=== PATIENT | female | born 1950 | race Caucasian/White ===

== ENCOUNTER 2022-03-30 11:18 | Emergency (ER) | payer MEDICARE, SELFPAY ==
--- NOTE | ~2022-03-30 | XR_ITS ---
EXAMINATION: XR chest 2V 03/30/2022 12:20 INDICATION: Cough with shortness of breath PROCEDURE: 2 view chest COMPARISON: Comparison to multiple prior studies sequentially, with oldest reviewed study dated 09/2010. FINDINGS: The lungs are clear. The cardiomediastinal silhouette is within normal limits. There are no pleural effusions. There is no pneumothorax suspected. Status post median sternotomy for CABG. IMPRESSION: 1: NO ACUTE CARDIOPULMONARY DISEASE. Reviewed, dictated and finalized at location A.
[2022-03-30 11:31] VITALS: BP 168/58; PULSE 67; RESP 18; TEMP 36.6; O2SAT 96
--- NOTE | 2022-03-30 11:52 | ECG_ITS ---
Measurements Intervals [place] Rate: 60 P: 60 [place]: 216 QRS: -19 QRSD: 141 T: 6 QT: 447 QTc: 449 Interpretive Statements SINUS RHYTHM WITH FIRST DEGREE AV BLOCK LEFT BUNDLE BRANCH BLOCK [120+ ms QRS DURATION, 80+ ms Q/S IN V1/V2, 85+ ms R IN I/aVL/V5/V6] NO PREVIOUS ECG AVAILABLE FOR COMPARISON Electronically Signed On 03-31-2022 13:02:28 CDT by Orville Farmer M.D.
--- NOTE | 2022-03-30 11:52 | ED.SOB ---
HPI - SOB/Dyspnea General Chief Complaint: Shortness of Breath/Dyspnea Stated Complaint: shortness of breath Source: patient Mode of arrival: ambulatory Limitations: no limitations History of Present Illness HPI Narrative: Patient 71-year-old white female with history of congestive heart failure complains of shortness of breath with exertion for the past 4-5 days worse at night and with exertion he has had some episodes where she gets short of breath at nighttime wakes up has to get up being catch her breath. She has had a nonproductive cough for the last 3 days denies any chest pain fever. She thinks she might have had fevers she has had some chills she has been fatigued she says it feels like she might have for congestive heart failure symptoms back. She takes hydrochlorothiazide for this denies any dizziness heart racing denies any chest pain leg pain back or abdominal pain her headache she saw her curriculum facilitator in December and her primary care doctor in November she had COVID in December past medical history heart disease coronary artery disease with a bypass. Related Data Home Medications Medication Instructions Recorded Confirmed carvedilol 12.5 mg tablet 12.5 mg PO BID 05/17/19 03/30/22 insulin NPH isoph U-100 human 100 40 unit subcut HS 05/17/19 03/30/22 unit/mL subcutaneous suspension (Humulin N NPH U-100 Insulin (isophane susp)) losartan 100 mg tablet 100 mg PO HS 05/17/19 03/30/22 metformin 1,000 mg tablet 1,000 mg PO BID 05/17/19 03/30/22 pravastatin 10 mg tablet 10 mg PO HS 05/17/19 03/30/22 aspirin 81 mg tablet,delayed 81 mg PO DAILY 01/21/21 03/30/22 release (Adult Aspirin Regimen) Allergies Allergy/AdvReac Type Severity Reaction Status Date / Time Penicillins Allergy Unknown Hives Verified 03/30/22 11:35 Review of Systems Review of Systems: All systems reviewed & are unremarkable except as noted in HPI and below Constitutional: Constitutional: Reports as per HPI, Reports no additional constitutional complaints, Reports chills, Reports fatigue, Denies fever(s) and Denies weakness Eyes: Eyes: Reports no additional eye complaints ENT: Reports system reviewed and no additional complaints, except as documented Comments: Denies any sore throat runny nose postnasal drip. Cardiovascular: Cardiovascular: Reports as per HPI and Reports no additional cardiovascular complaints Respiratory: Respiratory: Reports as per HPI and Reports no additional respiratory complaints Gastrointestinal: Gastrointestinal: Reports as per HPI and Reports no additional gastrointestinal complaints Genitourinary: Comments: She had some burning with urination 4 days ago and took some azo, since then she has not had any burning. She says she avoids all the time. Denies any bleeding or bruising. Musculoskeletal: Musculoskeletal: Reports no additional musculoskeletal complaints and Reports as per HPI Comments: Denies any pain Integumentary/Breasts: Skin/Breast: Reports system reviewed and no additional complaints, except as docu Comments: denies any lumps or bumps Neurologic: Reports system reviewed and no additional complaints, except as documented, Reports as per HPI, Denies focal weakness, Denies numbness and Denies weakness Psychiatric: Psychiatric: Reports no additional psychiatric complaints Endocrine: Endocrine: Reports no additional endocrine complaints Hematologic/Lymphatic: Hematologic/Lymphatic: Reports no additional hematologic/lymphatic complaints [facility] Past Medical History Medical History Arthritis Hyperlipidemia Hypertension KIP (obstructive sleep apnea) Family History Family History Father Family history of diabetes mellitus in first degree relative Family history of heart disease in male family member before age 55 Mother Family history of diabetes mellitus in first degree relative
[2022-03-30 11:55] VITALS: PULSE 60; RESP 18; O2SAT 92
[2022-03-30] MEDS: IPRATROPIUM 0.5 MG/ALBUTEROL SULFATE 2.5 MG AMPUL.NEB 3 ML INHALATION (11:55)
[2022-03-30 12:04] VITALS: PULSE 67; RESP 18
[2022-03-30 12:12] LABS: Basophils Absolute Auto 0.04 K/mm3 (0.00-0.10); Basophils Percent Auto 0.4 % (0.0-1.0); Hemoglobin 11.3 g/dL (11.7-13.8); Immature Granulocyte Absolute 0.03 K/mm3 (0.00-0.00); Immature Granulocyte Percent A 0.3 % (0.0-0.0); Lymphocytes Absolute Auto 2.61 K/mm3 (1.10-4.50); Lymphocytes Percent Auto 28.3 % (18.0-42.0); Mean Corpuscular HGB Conc 32.3 g/dL (32.0-36.0); Mean Corpuscular Hemoglobin 28.5 pg (27.0-31.0); Mean Corpuscular Volume 88.2 fL (78.0-102.0); Mean Platelet Volume 11.4 fl (9.2-11.8); Monocytes Absolute Auto 0.89 K/mm3 (0.10-0.90); Monocytes Percent Auto 9.7 % (2.0-11.0); Neutrophils Absolute Auto 5.6 K/mm3 (1.7-7.2); Neutrophils Percent Auto 61.3 % (50.0-70.0); Platelet Count Result 209 K/mm3 (150-420); Red Blood Count 3.97 M/mm3 (4.20-5.40); Red Cell Distribution Width 14.4 % (11.6-14.4); White Blood Count 9.2 K/mm3 (4.8-10.8)
[2022-03-30 12:14] LABS: Bilirubin Urine 1+ (Negative); Blood Urine 1+ (Negative); Glucose Urine UA Negative (Negative); Ketones Urine Trace (Negative); Leukocyte Esterase Ur 3+ (Negative); Nitrate Urine Positive (Negative); Protein Urine 2+ (Negative); Specific Grav Ur 1.025 (1.010-1.020); Urobilinogen Urine 0.2 mg/dL (0.2-1.0)
[2022-03-30 12:20] LABS: Add Urine Microscopic? YES; Appearance Urine Cloudy (Clear); Color Urine Dark Yellow (Yellow)
[2022-03-30 12:21] LABS: Bacteria Urine 4+ /hpf; Squamous Epithelial Cell Urine Few /hpf (Few); WBC Urine >75 /hpf (0-3)
[2022-03-30 12:24] LABS: D Dimer 0.42 mg/L (0.19-0.50); INR 1.1; Partial Thromboplastin Time 34.1 SEC (23.90-30.70); Prothrombin Time 11.6 Seconds (9.50-12.10)
[2022-03-30 12:32] LABS: Alanine Aminotransferase 26 U/L (14-59); Albumin Level 3.3 g/dL (3.4-5.0); Alkaline Phosphatase 80 U/L (46-116); Anion Gap 7 mmol/L (8-16); Aspartate Amino Transferase 20 U/L (15-37); Bilirubin,Total 1.5 mg/dL (0.00-1.00); Blood Urea Nitrogen 20 mg/dL (7-18); Calcium 8.8 mg/dL (8.5-10.1); Carbon Dioxide 28 mmol/L (21-32); Chloride 99 mmol/L (98-108); Estimated Glomerular Filt Rate 49; Glucose 222 mg/dL (70-99); Magnesium 1.7 mg/dL (1.8-2.4); NT Pro B Type Natriuretic Pept 1079 pg/mL (0-125); Osmolality Calculated 287 mOsm/kg (285-295); Sodium 134 mmol/L (136-145)
[2022-03-30 12:34] LABS: Troponin I 278.3 ng/L (0.00-60.4)
--- NOTE | 2022-03-30 13:10 | PC.NURSE ---
attempt to call warehouse forklift operator at [place], no answer will try again.
[2022-03-30] MEDS: CIPROFLOXACIN 250 MG TABLET PO (13:25)
[2022-03-30] MEDS: ENOXAPARIN 100 MG/ML SYRINGE SUB-Q (13:26)
[2022-03-30] MEDS: ASPIRIN 81 MG CHEWABLE TABLET 324 MG PO (13:26)
--- NOTE | 2022-03-30 13:30 | PC.NURSE ---
spoke with kumar sheabath house attendant at [facility], states the will have an IMU room avalible but it will be awhile he has 6 admissions from the ER that he has to place first.
--- NOTE | 2022-03-30 14:29 | PC.NURSE ---
received a call from Chris sheagreenhouse superintendent at [facility], states he is still working on admissions at [facility] but still has room available for patient. will call back when its her turn.
[2022-03-30 14:57] LABS: Troponin I 251.3 ng/L (0.00-60.4)
--- NOTE | 2022-03-30 15:30 | PC.NURSE ---
Chris sheaboiler house operator from [facility] called, he has hospitalist paged at this time.
[2022-03-30 16:15] LABS: SARS-CoV-2 RNA PCR Negative (Negative)
--- NOTE | 2022-03-30 17:02 | PC.NURSE ---
kumar sheadata warehouse analyst from [place] called back. waiting on patient's potential room partner to have a negative flu swab prior to sending patient to [place] and getting room assignment.
[2022-03-30 18:37] VITALS: BP 174/65; PULSE 59; RESP 16; TEMP 36.8; O2SAT 94
--- NOTE | 2022-03-31 16:54 | PC.NURSE ---
PRELIMINARY URINE CULTURE GREATER THAN 100,000 CFU OF E COLI ISOLATED. NO SENSITIVITY REPORT AT THIS TIME. RESULTS WERE CALLED TO JANA JOHNSON AT [facility] AT 1510.
== END 2022-03-30 18:39 | disposition short-term general hospital (02) ==
PROVIDERS: Emergency Provider Emergency Medicine; PCP Internal Medicine
DX: I21.4 Non-ST elevation (NSTEMI) myocardial infarction (principal); I50.9 Heart failure, unspecified; Z20.822 Contact with and (suspected) exposure to COVID-19; E78.5 Hyperlipidemia, unspecified; I10 Essential (primary) hypertension; Z79.899 Other long term (current) drug therapy
CPT/HCPCS: 36415; 71046; 80053; 81001; 83735; 83880; 84484; 85025; 85380; 85610; 85730; 87077; 87086; 87088; 87186; 93005; 94640; 96372; 99285; A9270; J1650; U0003; U0005

== ENCOUNTER 2022-03-30 19:12 | Inpatient (IN) | payer MEDICARE, SELFPAY ==
--- NOTE | ~2022-03-30 | US_ITS ---
EXAMINATION: US venous doppler [facility] DATE: 03/31/2022 11:42 INDICATION: Lower limb swelling TECHNIQUE: Grayscale ultrasound images without and with compression and Doppler ultrasound images of the bilateral lower extremity veins were obtained. COMPARISON: None. FINDINGS: The visualized portions of right common femoral vein, profunda (deep) femoral vein, femoral vein, pop liteal vein, posterior tibial veins, peroneal veins and greater saphenous vein outflow are patent. The visualized portions of left common femoral vein, profunda femoral vein, femoral vein, popliteal v ein, posterior tibial veins, peroneal veins and greater saphenous vein outflow are patent. IMPRESSION: 1. No deep venous thrombosis in either lower limb. Reviewed, dictated and finalized at location B.
[2022-03-30 19:00] VITALS: BMI 37.2
--- NOTE | 2022-03-30 19:30 | PM.IMHP ---
H&P: HPI History of Present Illness Date/Time: 03/30/22 19:30 Chief Complaint: Elevated troponin. Narrative: This is a 71-year-old female with coronary artery disease, insulin-dependent diabetes, hypertension, hyperlipidemia, and sleep apnea who is being admitted to the IMU from the emergency department at the [facility] for further evaluation after she was found to have an elevated troponin. She swims 3 times a week and last Thursday she was driving to the facility and by the time she got there he was exhausted to the point where she could hardly even get out of the car. She returned home at which time she started to have chills and she felt as though she had a fever though never checked her temperature. She had a dry cough for a couple of days which has continued and she came in today for evaluation of progressive shortness of breath with exertion. She also reports having dysuria for a couple of days late last week but that has since resolved. Her appetite has not been great; she denies nausea and vomiting. Workup at the outside facility was pretty unremarkable. A troponin was drawn and came back slightly elevated and because of this transfer was initiated here for Cardiology consultation. At the time my evaluation her main complaint is that of the continued, barking cough. She does not and has not had any chest pain, pleuritic pain, or palpitations. SARS-CoV-2 by PCR was negative. Review of Systems Review of Systems: Twelve systems were reviewed. Reports subjective fever. No headache or neck ache. No sore throat or sinus congestion. She denies sick contacts. She had COVID a month and half ago. No back or abdominal pain. She had some dysuria earlier this week but that has resolved. No syncope or near syncope. Except as documented, all other systems were reviewed and are negative. [facility] Past Medical History Medical History (Updated 03/30/22 @ 22:09 by Martina Guzman PA-C) Arthritis Coronary artery disease Heart failure with preserved ejection fraction Hyperlipidemia Hypertension Insulin dependent type 2 diabetes mellitus Obstructive sleep apnea Surgical History Surgical History (Updated 03/30/22 @ 19:17 by Martina Guzman PA-C) History of coronary artery bypass graft (10/2010) Family History Family History Father Family history of diabetes mellitus in first degree relative Family history of heart disease in male family member before age 55 Mother Family history of diabetes mellitus in first degree relative Family history of heart disease in male family member before age 55 Social History Social History Social History: Surrogate medical decision maker: Sohail Becerra, spouse. Code status: Full code. Smoking status: Never smoker Alcohol intake: never Substance use: never Has the Lack of Transportation Kept You From Medical Appointments or From Getting Medications?: No Within the Past 12 Months, Were You Worried Whether Your Food Would Run Out Before You Got Money to Buy More?: Never True What is Your Housing Situation Today?: I Have Housing Are You Worried That in the Next 2 Months, You May Not Have Your Own Housing to Live In?: No Do You Have Trouble Paying Your Heating Or Electricity Bill?: No Do You Have Trouble Paying For Medicines?: No Are You Currently Unemployed and Looking for Work?: No Highest Level of Education Completed: High School Diploma/GED Do You Have Trouble With Childcare or the Care of a Family Member?: No Spiritual care concerns: No Meds Home Medications and Allergies Home Medications Medication Instructions Recorded Confirmed Type carvedilol 12.5 mg tablet 12.5 mg PO BID 05/17/19 03/30/22 History insulin NPH isoph U-100 human 100 40 unit subcut HS 05/17/19 03/30/22 History unit/mL subcutaneous suspension (Humulin N
[2022-03-30 20:00] VITALS: BP 148/64; PULSE 64; PULSE 74; RESP 20; TEMP 37.5; O2SAT 99
--- NOTE | 2022-03-30 20:21 | ADMGEN ---
This patient, Melissa Molina, was admitted to IMU Room 206-01 at 1904. Patient/family oriented to hospital policies and general routines including ID bracelet, bed and alarms, visiting hours, pain management, procedures, bathroom and other care routines, personal items, smoking policy, room service/diet, and visiting hours. Information on how to activate the Rapid Response Team has been discussed. Patient/Family are encouraged to report perceived risks to care and to ask questions if they do not understand what they are told or what they should do.
[2022-03-30 21:17] LABS: Anion Gap 11 mmol/L (8-16); Blood Urea Nitrogen 19 mg/dL (7-17); Calcium 8.9 mg/dL (8.4-10.2); Carbon Dioxide 25 mmol/L (22-30); Chloride 97 mmol/L (98-107); Estimated Glomerular Filt Rate > 60; Glucose 206 mg/dL (65-110); Potassium 3.7 mmol/L (3.4-5.0); Sodium 133 mmol/L (137-145)
[2022-03-30 21:18] LABS: Magnesium 1.7 mg/dL (1.6-2.3)
[2022-03-30 21:22] LABS: Glucose Point of Care 217 mg/dl (65-105)
[2022-03-30 21:31] LABS: Troponin I 0.139 ng/mL (0.000-0.034)
[2022-03-30 22:00] VITALS: PULSE 69
[2022-03-30 22:05] VITALS: PULSE 89; RESP 18
[2022-03-30] MEDS: ALBUTEROL SULFATE (*SP) AEROSOL 1 PUFF 2 PUFF INHALATION (22:05)
[2022-03-30] MEDS: FUROSEMIDE INJ 40 MG/4 ML VIAL 20 MG IV PUSH (23:10)
[2022-03-30] MEDS: amLODIPine BESYLATE 5 MG TABLET 10 MG PO (23:11)
[2022-03-30 23:12] VITALS: PULSE 86
[2022-03-30] MEDS: LOSARTAN POTASSIUM 100 MG TABLET PO (23:12)
[2022-03-30] MEDS: PRAVASTATIN SODIUM 10 MG TABLET PO (23:12)
[2022-03-30] MEDS: carvediloL 12.5 MG TABLET PO (23:12)
[2022-03-30] MEDS: INSULIN HUMAN NPH (*BKC) 100 UNITS/ML 40 UNITS SUB-Q (23:13)
[2022-03-30 23:38] VITALS: BP 154/44; PULSE 73; RESP 20; TEMP 36.6; O2SAT 97
[2022-03-31] VITALS (14 sets, daily range): BP systolic 120–150; BP diastolic 44–52; PULSE 55–69; RESP 16–24; TEMP 36.4–37.7; O2SAT 89–99; BMI 37.6
--- NOTE | 2022-03-31 | ECHO_ITS ---
Patient Info Name: Melissa Molina Age: 71 years : 1950 Gender: Female Ht: 65 in Wt: 223 lbs BSA: 2.20 m2 HR: 60 bpm BP: 136 / 44 mmHg Technical Quality: Good Exam Date: 03/31/2022 10:19 AM Exam Location: [facility] Patient Status: Outpatient Admit Date: 03/30/2022 Staff Ordering Physician: Patrick Cadena DO Treatment Coordinator: Bro Madden RDCS, RT Attending Provider: Mickie Cruz Referring Physician: Surinder ESPAÑA; Exam Type: CA echo doppler color flow Study Info Indications R06.02 - Shortness of breath Complete two-dimensional, color flow and Doppler transthoracic echocardiogram is performed. Strain analysis performed. Summary 1. Complete two-dimensional, color flow and Doppler transthoracic echocardiogram is performed. 2. Left ventricular chamber dimension is normal. 3. Left ventricular systolic function is normal, estimated at 60-65%. 4. There is mildly increased left ventricular wall thickness. 5. The left ventricular diastolic function is abnormal. 6. E/e' 20 is elevated. 7. Global longitudinal strain is abnormal at -7.3%. 8. Left atrial chamber dimension is moderately enlarged. 9. There is mild aortic valve sclerosis. 10. The mitral valve has severely calcified annulus. 11. There is mild mitral valve regurgitation. 12. There is mild tricuspid valve regurgitation. 13. No pulmonary hypertension, estimated pulmonary arterial systolic pressure is 35 mmHg. Left Ventricle E/e' 20 is elevated. Global longitudinal strain is abnormal at -7.3%. Left ventricular chamber dimension is normal. Left ventricular systolic function is normal, estimated at 60-65%. There is mildly increased left ventricular wall thickness. The left ventricular diastolic function is abnormal. Right Ventricle Right ventricular chamber dimension is normal. Right ventricular systolic function is normal. Left Atria Left atrial chamber dimension is moderately enlarged. Right Atria Right atrial chamber dimension is normal. Aortic Valve The aortic valve is trileaflet. There is mild aortic valve sclerosis. There is no aortic valve stenosis. There is no aortic valve regurgitation. Pulmonic Valve There is no pulmonic regurgitation. Mitral Valve The mitral valve has severely calcified annulus. There is no mitral valve stenosis. There is mild mitral valve regurgitation. Tricuspid Valve There is mild tricuspid valve regurgitation. No pulmonary hypertension, estimated pulmonary arterial systolic pressure is 35 mmHg. Pericardium/Pleural There is no pericardial effusion. Inferior Vena Cava Normal inferior vena cava with >50% collapse upon inspiration consistent with normal right atrial pressure, 5 mmHg. Aorta The aortic root size at the sinus of Valsalva is normal. Left Ventricular Outflow Tract Name Value Normal LVOT 2D LVOT Diameter 2.0 cm LVOT Doppler LVOT Peak Gradient 5 mmHg LVOT Mean Gradient 3 mmHg LVOT VTI 26 cm LVOT VTI/AV VTI Ratio 0.8
[2022-03-31 00:19] LABS: Troponin I 0.162 ng/mL (0.000-0.034)
[2022-03-31 04:03] LABS: Troponin I 0.149 ng/mL (0.000-0.034)
[2022-03-31 06:12] LABS: Anion Gap 8 mmol/L (8-16); Blood Urea Nitrogen 21 mg/dL (7-17); Calcium 8.7 mg/dL (8.4-10.2); Carbon Dioxide 29 mmol/L (22-30); Chloride 97 mmol/L (98-107); Estimated CRCL calculation 58 ml/min; Estimated Glomerular Filt Rate > 60; Glucose 170 mg/dL (65-110); Potassium 3.5 mmol/L (3.4-5.0); Sodium 134 mmol/L (137-145)
[2022-03-31] MEDS: carvediloL 12.5 MG TABLET PO ×2 (08:01→20:47)
[2022-03-31] MEDS: metFORMIN HCL 500 MG TABLET 1000 MG PO ×2 (08:01→16:57)
[2022-03-31] MEDS: hydroCHLOROthiazide 25 MG TABLET PO (08:02)
[2022-03-31] MEDS: ENOXAPARIN 40 MG/0.4 ML SYRINGE SUB-Q (08:02)
[2022-03-31] MEDS: ASPIRIN 81 MG ENTERIC TABLET PO (08:02)
[2022-03-31] MEDS: ACETAMINOPHEN 325 MG TABLET 650 MG PO (08:07)
--- NOTE | 2022-03-31 08:18 | PM.CNCAR ---
Assessment and Plan Assessment and plan (1) Elevated troponin: Code(s): R77.8 - Other specified abnormalities of plasma proteins Status: Acute Assessment and Plan: Symptoms are not suggestive of ACS. Could be due to UTI. Peaked at 0.162. NTproBNP at 1,079. CXR is normal. Obtain echo. (2) CAD (coronary artery disease), autologous vein bypass graft: Code(s): I25.810 - Atherosclerosis of coronary artery bypass graft(s) without angina pectoris Status: Acute (3) Hypertension: Code(s): I10 - Essential (primary) hypertension Status: Acute Assessment and Plan: Stable. Continue same home medication. (4) Hyperlipidemia: Code(s): E78.5 - Hyperlipidemia, unspecified Status: Acute Assessment and Plan: On Pravastatin. (5) Urinary tract infection: Code(s): N39.0 - Urinary tract infection, site not specified Status: Acute Assessment and Plan: On antibiotics as per hospitalist. History of Present Illness History of Present Illness Consult date/time: 03/31/22 08:18 Reason For Visit: Elevated Troponin Narrative: Patient is a 71 yr old woman who is my regular cardiology patient presents to ER with exhaustion. She has a history of LBBB, hypertension, DM, dyslipidemia, CAD with CABG, covid infection in October 2021. She presented [facility] to [facility] then transferred here for elevated troponin. States that 7 days ago she thought she had urinary tract infection with symptoms but then it resolved. Then 3 days ago she was driving to her water aerobic class and had extreme fatigue so she did not go and went home. She also had dry cough for a few days, subjective fever/chills. Normally she exercises about 1 hour 15 minutes in swimming pool three times a week.? Reports she is limited by knee and ankle pain and leg fatigue when walking. She can walk at least 1-2 blocks. Denies chest pain, sob, orthopnea, edema, palpitations. Cardiovascular Procedures Cost Coordinator:: 11/15/10 CABG x 4 vessels at [facility]: BAILEY to LAD, left radial to OM2, SVG to 1st Diag, SVG to right PDA. Echo/MUGA:: Echo (EF 55-60%, trace AI/TR.) - 04/25/2015 Electrophysiology:: EKG (Sinus rhythm, LVH, IVCD, consider atypcial LBBB.) - 04/24/2015 Stress Tests:: MPI (Lexiscan myoview: Negative for ischemia; large fixed defets in apex, apical anterior, apical lateral and apical inferior and mid-basal inferolateral segments.) - 10/01/2015 Review of Systems Review of Systems: All systems reviewed & are unremarkable except as noted in HPI and below Constitutional: Constitutional: Reports as per HPI, Reports chills, Reports fatigue and Reports fever(s) Cardiovascular: Cardiovascular: Denies chest pain, Denies irregular heart rhythm, Denies leg edema and Denies lightheadedness Respiratory: Respiratory: Reports as per HPI, Reports cough and Reports dyspnea Gastrointestinal: Gastrointestinal: Reports as per HPI and Denies abdominal pain Genitourinary: Genitourinary: Reports as per HPI and Reports dysuria Musculoskeletal: Musculoskeletal: Reports as per HPI Neurologic: Reports as per HPI, Denies dizziness and Denies syncope [facility] Past Medical History Medical History (Updated 03/31/22 @ 00:00 by Jah Maloney) Arthritis Coronary artery disease Heart failure with preserved ejection fraction Hyperlipidemia Hypertension Insulin dependent type 2 diabetes mellitus Obstructive sleep apnea Surgical History Surgical History (Updated 03/30/22 @ 19:17 by Martina Guzman PA-C) History of coronary artery bypass graft (10/2010) Family History Family History Father Family history of diabetes mellitus in first degree relative Family history of heart disease in male family member before age 55 Mother Family history of diabetes mellitus in first degree relative Family history of heart disease in male family member before age
[2022-03-31 08:37] LABS: Basophils Percent Auto 0.4 % (0.2-1.2); Eosinophils Percent Auto 0.2 % (0-4.4); Hematocrit 35.2 % (37.0-47.0); Hemoglobin 11.2 g/dL (12.0-15.0); Immature Granulocyte Absolute 0.03 K/mm3 (0.00-0.031); Immature Granulocyte Percent A 0.3 % (0-0.5); Lymphocytes Absolute Auto 3.47 K/mm3 (0.9-3.2); Lymphocytes Percent Auto 36.4 % (18.3-44.2); Mean Corpuscular HGB Conc 31.8 g/dl (32-36); Mean Corpuscular Hemoglobin 28.6 pg (26-34); Mean Corpuscular Volume 89.8 fl (80-100); Mean Platelet Volume 11.8 fl (7.4-10.4); Monocytes Absolute Auto 1.1 K/mm3 (0.1-0.6); Monocytes Percent Auto 11.8 % (2.6-8.5); Neutrophils Absolute Auto 4.8 K/mm3 (1.3-6.7); Neutrophils Percent Auto 50.9 % (45.5-73.1); Platelet Count Result 189 k/mm3 (150-375); Red Blood Count 3.92 M/mm3 (4.2-5.4); Red Cell Distribution Width 14.6 % (11.5-14.5); White Blood Count 9.5 K/mm3 (4.5-10.0)
[2022-03-31 08:42] LABS: Glucose Point of Care 166 mg/dl (65-105)
[2022-03-31 09:09] LABS: NT Pro B Type Natriuretic Pept 1740 pg/mL (5-100)
[2022-03-31 09:16] LABS: D Dimer 0.45 ug/mL (<0.48)
[2022-03-31] MEDS: BENZONATATE 100 MG CAPSULE 200 MG PO ×3 (12:22→20:46)
[2022-03-31 12:23] LABS: Glucose Point of Care 168 mg/dl (65-105)
[2022-03-31 15:04] LABS: Influenza Control Positive
--- NOTE | 2022-03-31 15:15 | P.PNIM_ITS ---
Progress Note: A&P Assessment and Plan (1) Elevated troponin: Code(s): R77.8 - Other specified abnormalities of plasma proteins Status: Acute (2) Coronary artery disease: Code(s): I25.10 - Atherosclerotic heart disease of [place] coronary artery without angina pectoris Status: Chronic Assessment and Plan: * Patient with initially elevating troponins, however they are no decreasing. * Cardiology consulted and do not have the opinion that patient is having acute coronary syndrome. * Echo performed today with an EF of 65%. * continue current medications and monitor on telemetry, however stable to move out of IMU. (3) Insulin dependent type 2 diabetes mellitus: Code(s): E11.9 - Type 2 diabetes mellitus without complications; Z79.4 - termite control technician (current) use of insulin Status: Chronic Assessment and Plan: * Accu-Cheks AC and HS * diabetic diet * sliding scale insulin low-dose in conjunction with NPH 40 units at bedtime. * Continue metformin 1000 mg b.i.d.. * Hypoglycemic protocol in place. * Hemoglobin A1c is 8.0 (4) Hypertension: Code(s): I10 - Essential (primary) hypertension Status: Chronic Assessment and Plan: * continue home medications * currently stable * continue to monitor vitals (5) Hyperlipidemia: Code(s): E78.5 - Hyperlipidemia, unspecified Status: Chronic Assessment and Plan: * continue statin therapy (6) Obstructive sleep apnea: Code(s): G47.33 - Obstructive sleep apnea (adult) (pediatric) Status: Chronic Assessment and Plan: * CPAP at bedtime. (7) Urinary tract infection: Code(s): N39.0 - Urinary tract infection, site not specified Status: Acute Assessment and Plan: * urine culture grew out E coli. Sensitivity pending * continue Rocephin IV today pending sensitivity. (8) Heart failure with preserved ejection fraction: Code(s): I50.30 - Unspecified diastolic (congestive) heart failure Status: Acute Assessment and Plan: * Echocardiogram performed today. Ejection fraction 65%. * No stenosis. (9) Abnormal urinalysis: Code(s): R82.90 - Unspecified abnormal findings in urine Status: Acute Assessment and Plan: 03/31/22: See plan for problem 7. Time Spent With Patient Time with patient: 15 - 25 minutes Subjective Date/time seen: 03/31/22 1014 This patient was examined today after being admitted to the hospital with elevated troponins, weakness in overall feelings of fatigue. She was found have urinary tract infection was started empirically on Rocephin. Urine culture returns positive today for E coli. Her troponins peaked at 0.162 and started to decline. Cardiology was consulted and do not feel that patient has ACS. Echocardiogram is ordered and performed with results of a left ventricular systolic function being normal with EF of 60-65%. There was no identified pul monary hypertension. Patient therefore has no acute concerns for ACS. She will be treated IV antibiotics for her urinary tract infection pending sensitivity. Her only complaint today is that she has had approximately 1-2 weeks of urinary burning and frequency and overall fatigue along with a persistent cough that is not associated with any infectious findings either on physical exam or imaging, and she is negative for COVID. Review of Systems Review of Systems: All systems reviewed & are unremarkable except as noted in HPI and below Exam Narrative:
--- NOTE | 2022-03-31 15:15 | PM.IMPN ---
Progress Note: A&P Assessment and Plan (1) Elevated troponin: Code(s): R77.8 - Other specified abnormalities of plasma proteins Status: Acute (2) Coronary artery disease: Code(s): I25.10 - Atherosclerotic heart disease of [place] coronary artery without angina pectoris Status: Chronic Assessment and Plan: Patient with initially elevating troponins, however they are no decreasing. Cardiology consulted and do not have the opinion that patient is having acute coronary syndrome. Echo performed today with an EF of 65%. continue current medications and monitor on telemetry, however stable to move out of IMU. (3) Insulin dependent type 2 diabetes mellitus: Code(s): E11.9 - Type 2 diabetes mellitus without complications; Z79.4 - terminologist (current) use of insulin Status: Chronic Assessment and Plan: Accu-Cheks AC and HS diabetic diet sliding scale insulin low-dose in conjunction with NPH 40 units at bedtime. Continue metformin 1000 mg b.i.d.. Hypoglycemic protocol in place. Hemoglobin A1c is 8.0 (4) Hypertension: Code(s): I10 - Essential (primary) hypertension Status: Chronic Assessment and Plan: continue home medications currently stable continue to monitor vitals (5) Hyperlipidemia: Code(s): E78.5 - Hyperlipidemia, unspecified Status: Chronic Assessment and Plan: continue statin therapy (6) Obstructive sleep apnea: Code(s): G47.33 - Obstructive sleep apnea (adult) (pediatric) Status: Chronic Assessment and Plan: CPAP at bedtime. (7) Urinary tract infection: Code(s): N39.0 - Urinary tract infection, site not specified Status: Acute Assessment and Plan: urine culture grew out E coli. Sensitivity pending continue Rocephin IV today pending sensitivity. (8) Heart failure with preserved ejection fraction: Code(s): I50.30 - Unspecified diastolic (congestive) heart failure Status: Acute Assessment and Plan: Echocardiogram performed today. Ejection fraction 65%. No stenosis. (9) Abnormal urinalysis: Code(s): R82.90 - Unspecified abnormal findings in urine Status: Acute Assessment and Plan: 03/31/22: See plan for problem 7. Time Spent With Patient Time with patient: 15 - 25 minutes Subjective Date/time seen: 03/31/22 0745 This patient was examined today after being admitted to the hospital with elevated troponins, weakness in overall feelings of fatigue. She was found have urinary tract infection was started empirically on Rocephin. Urine culture returns positive today for E coli. Her troponins peaked at 0.162 and started to decline. Cardiology was consulted and do not feel that patient has ACS. Echocardiogram is ordered and performed with results of a left ventricular systolic function being normal with EF of 60-65%. There was no identified pulmonary hypertension. Patient therefore has no acute concerns for ACS. She will be treated IV antibiotics for her urinary tract infection pending sensitivity. Her only complaint today is that she has had approximately 1-2 weeks of urinary burning and frequency and overall fatigue along with a persistent cough that is not associated with any infectious findings either on physical exam or imaging, and she is negative for COVID. Review of Systems Review of Systems: All systems reviewed & are unremarkable except as noted in HPI and below Exam Narrative: General: Well-developed, nontoxic-appearing female sitting up in bed. HEENT: PERRL, EOMI. Sclera anicteric. Oral mucosa moist. Oropharynx clear. Neck: Supple. No lymphadenopathy. Respiratory: Respirations are nonlabored. Frequent barking cough. No adventitious lung sounds. No wheezing. Cardiovascular: Regular rate and rhythm with S1-S2. Gastrointestinal: Abdomen is soft, nontender, and nondistended with positive bow
[2022-03-31 16:51] LABS: Glucose Point of Care 170 mg/dl (65-105)
[2022-03-31] MEDS: LOSARTAN POTASSIUM 100 MG TABLET PO (20:45)
[2022-03-31] MEDS: PRAVASTATIN SODIUM 10 MG TABLET PO (20:46)
[2022-03-31] MEDS: amLODIPine BESYLATE 5 MG TABLET 10 MG PO (20:47)
[2022-03-31] MEDS: INSULIN HUMAN NPH (*BKC) 100 UNITS/ML 40 UNITS SUB-Q (20:48)
[2022-03-31 20:53] LABS: Glucose Point of Care 189 mg/dl (65-105)
[2022-04-01] VITALS (7 sets, daily range): BP systolic 118–134; BP diastolic 36–58; PULSE 49–61; RESP 14–20; TEMP 36.1–37.1; O2SAT 95–98
[2022-04-01 05:33] LABS: Basophils Percent Auto 0.6 % (0.2-1.2); Eosinophils Absolute Auto 0.1 K/mm3 (0-0.3); Hematocrit 31.9 % (37.0-47.0); Hemoglobin 10.1 g/dL (12.0-15.0); Immature Granulocyte Absolute 0.02 K/mm3 (0.00-0.031); Immature Granulocyte Percent A 0.3 % (0-0.5); Lymphocytes Percent Auto 44.3 % (18.3-44.2); Mean Corpuscular HGB Conc 31.7 g/dl (32-36); Mean Corpuscular Hemoglobin 28.7 pg (26-34); Mean Corpuscular Volume 90.6 fl (80-100); Mean Platelet Volume 11.5 fl (7.4-10.4); Monocytes Percent Auto 14.3 % (2.6-8.5); Neutrophils Absolute Auto 2.8 K/mm3 (1.3-6.7); Neutrophils Percent Auto 39.5 % (45.5-73.1); Platelet Count Result 172 k/mm3 (150-375); Red Blood Count 3.52 M/mm3 (4.2-5.4); Red Cell Distribution Width 14.5 % (11.5-14.5)
[2022-04-01 05:45] LABS: Alanine Aminotransferase 24 U/L (6-35); Albumin Level 3.3 g/dL (3.5-5.1); Alkaline Phosphatase 68 U/L (38-126); Anion Gap 11 mmol/L (8-16); Aspartate Amino Transferase 35 U/L (14-36); Bilirubin,Total 0.9 mg/dL (0.2-1.3); Blood Urea Nitrogen 28 mg/dL (7-17); Calcium 8.2 mg/dL (8.4-10.2); Carbon Dioxide 29 mmol/L (22-30); Chloride 97 mmol/L (98-107); Estimated CRCL calculation 58 ml/min; Estimated Glomerular Filt Rate > 60; Glucose 104 mg/dL (65-110); Magnesium 1.9 mg/dL (1.6-2.3); Potassium 3.4 mmol/L (3.4-5.0); Sodium 137 mmol/L (137-145)
--- NOTE | 2022-04-01 08:03 | PM.PNCARD ---
Progress Note: A&P Assessment and Plan (1) Elevated troponin: Code(s): R77.8 - Other specified abnormalities of plasma proteins Status: Acute Assessment and Plan: Symptoms are not suggestive of ACS. Could be due to UTI. Peaked at 0.162. NTproBNP at 1,079. CXR is normal. 03/31/22 Echo: EF 60-65%, mild LVH, diastolic dysfunction (E/e' 20), mod LAE, mild MR/TR. No wall motion abnormalities. No further cardiac workup is needed. (2) CAD (coronary artery disease), autologous vein bypass graft: Code(s): I25.810 - Atherosclerosis of coronary artery bypass graft(s) without angina pectoris Status: Acute (3) Hypertension: Code(s): I10 - Essential (primary) hypertension Status: Chronic Assessment and Plan: Stable. Continue same home medication. (4) Hyperlipidemia: Code(s): E78.5 - Hyperlipidemia, unspecified Status: Chronic Assessment and Plan: On Pravastatin. (5) Urinary tract infection: Code(s): N39.0 - Urinary tract infection, site not specified Status: Acute Assessment and Plan: On antibiotics as per hospitalist. (6) Diastolic dysfunction: Code(s): I51.89 - Other ill-defined heart diseases Status: Acute Assessment and Plan: Euvolemic. On HCTZ. Potassium 3.4. (7) Anemia: Code(s): D64.9 - Anemia, unspecified Status: Acute Assessment and Plan: Hb 10.1. Needs evaluation by hospitalist. Subjective Date/time seen: 04/01/22 08:03 Interval history: Reports feeling better. No chest pain or sob. Has cough. Exam Const: General: cooperative, healthy appearing, comfortable and obese Nutritional Appearance: obese Orientation/consciousness: oriented to person, oriented to place and oriented to time Resp: Auscultation: clear to auscultation bilaterally, no crackles, no rales, no rhonchi and no wheezes Cardio: Jugular venous distension: no JVD Rate: regular rate Rhythm: regular rhythm Heart sounds: no murmurs Peripheral pulses: dorsalis pedis present Neuro: General: oriented to person, oriented to place and oriented to time Extrem: Right lower extremity: no edema Left lower extremity: no edema Objective Data Vital Signs Vital Signs: Vital Signs - 24 hr 03/31/22 12:00 03/31/22 10:00 03/31/22 12:00 Temperature 97.5 F L Pulse Rate 56 L 61 55 L Respiratory Rate 20 Blood Pressure 121/52 L Pulse Oximetry 96 Oxygen Delivery 03/31/22 12:00 03/31/22 14:00 03/31/22 16:00 Temperature 98.2 F Pulse Rate 58 L 59 L Respiratory Rate 16 Blood Pressure 140/49 L Pulse Oximetry 96 Oxygen Delivery Room Air 03/31/22 19:26 03/31/22 20:47 03/31/22 20:00 Temperature 99.1 F Pulse Rate 62 65 63 Respiratory Rate 16 Blood Pressure 150/51 H Pulse Oximetry 96 Oxygen Delivery 03/31/22 23:43 04/01/22 00:00 04/01/22 00:00 Temperature 98.9 F Pulse Rate 56 L 56 L 56 L Respiratory Rate 20 20 Blood Pressure 120/48 L Pulse Oximetry 98 98 Oxygen Delivery Room Air 04/01/22 00:54 04/01/22 03:52 04/01/22 04:00 Temperature Pulse Rate 61 52 L 49 L Respiratory Rate Blood Pressure Pulse Oximetry 96 95 Oxygen Delivery Autopap Autopap 04/01/22 04:00 Temperature 98.7 F Pulse Rate 53 L Respiratory Rate 20 Blood Pressure 118/36 L Pulse Oximetry 98 Oxygen Delivery Intake/Output Intake/Output: Intake & Output 03/29/22 03/30/22 03/31/22 04/01/22 23:59 23:59 23:59 23:59 Intake Total 50 820 200 Output Total 600 500 Balance 50 220 -300 Meds/Results Medications: Active Medications Generic Name Dose Route Start Last Admin Trade Name Freq PRN Reason Stop Dose Admin Acetaminophen 650 mg 03/30/22 19:12 03/31/22 08:07 Acetaminophen 325 Mg Tablet PO 650 mg Q4H PRN Administration Mild Pain (1-3) or Fever Albuterol 2 puff 03/30/22 19:34 03/30/22 22:05 Albuterol Sulfate (*Sp) Aerosol 1 Puff INHALATION 2 puff
[2022-04-01 08:20] LABS: Glucose Point of Care 114 mg/dl (65-105)
[2022-04-01] MEDS: ASPIRIN 81 MG ENTERIC TABLET PO (08:39)
[2022-04-01] MEDS: hydroCHLOROthiazide 25 MG TABLET PO (08:39)
[2022-04-01] MEDS: metFORMIN HCL 500 MG TABLET 1000 MG PO (08:39)
[2022-04-01] MEDS: carvediloL 12.5 MG TABLET PO (08:40)
[2022-04-01] MEDS: ENOXAPARIN 40 MG/0.4 ML SYRINGE SUB-Q (08:40)
[2022-04-01] MEDS: ACETAMINOPHEN 325 MG TABLET 650 MG PO (08:47)
--- NOTE | 2022-04-01 11:45 | P.DS_ITS ---
DS: Admitting Diagnosis Discharge Date 04/01/22 1145 Admitting Diagnosis UTI DS: Discharge Diagnosis Discharge Diagnosis (1) Elevated troponin: Code(s): R77.8 - Other specified abnormalities of plasma proteins Status: Acute Assessment and Plan: * Elevated however flat * Cardiology consulted * Echo is normal * Outpatient follow up post discharge (2) Coronary artery disease: Code(s): I25.10 - Atherosclerotic heart disease of [place] coronary artery without angina pectoris Status: Chronic Assessment and Plan: * Patient with initially elevating troponins, however they are no decreasing. * Cardiology consulted and do not have the opinion that patient is having acute coronary syndrome. * Echo performed today with an EF of 65%. * continue current medications and monitor on telemetry (3) Insulin dependent type 2 diabetes mellitus: Code(s): E11.9 - Type 2 diabetes mellitus without complications; Z79.4 - rodent exterminator (current) use of insulin Status: Chronic Assessment and Plan: * Accu-Cheks AC and HS * diabetic diet * sliding scale insulin low-dose in conjunction with NPH 40 units at bedtime. * Continue metformin 1000 mg b.i.d.. * Hypoglycemic protocol in place. * Hemoglobin A1c is 8.0 (4) Hypertension: Code(s): I10 - Essential (primary) hypertension Status: Chronic Assessment and Plan: * continue home medications * currently stable * continue to monitor vitals (5) Hyperlipidemia: Code(s): E78.5 - Hyperlipidemia, unspecified Status: Chronic Assessment and Plan: * continue statin therapy (6) Obstructive sleep apnea: Code(s): G47.33 - Obstructive sleep apnea (adult) (pediatric) Status: Chronic Assessment and Plan: * CPAP at bedtime. (7) Urinary tract infection: Code(s): N39.0 - Urinary tract infection, site not specified Status: Acute Assessment and Plan: * urine culture grew out E coli. Sensitivity pending * continue Rocephin IV today pending sensitivity. * Continue oral cefdinir (8) Heart failure with preserved ejection fraction: Code(s): I50.30 - Unspecified diastolic (congestive) heart failure Status: Acute Assessment and Plan: * Echocardiogram performed today. Ejection fraction 65%. * No stenosis. (9) Abnormal urinalysis: Code(s): R82.90 - Unspecified abnormal findings in urine Status: Acute Assessment and Plan: 03/31/22: See plan for problem 7. DS: Summary Hospital Course Hospital Course: Patient is a 71-year-old female with past medical history of coronary artery disease status post CABG, hypertension, hyperlipidemia, sleep apnea who was admitted to the IMU from [place] for elevated troponins. Troponins were noted to be elevated cardiology had been consulted. Troponins were flat at this time. Cardiology had an echo ordered an echo showed an EF of 65%. Telemetry showed no acute abnormalities. Patient was also noted to have an infectious you a and urine culture did come back with E coli. Patient was started on IV ceftriaxone and patient has been doing well. Patient does complain that she is still fatigued however she is ready to go and labs and vital signs are stable at this time. Patient currently denies any other issues including chest pain, shortness a breath, nausea, vomiting, diarrhea, constipation, weakness or fatigue. She was very proud that her legs had no swelling and she does look very good. Patient is going to dis
--- NOTE | 2022-04-01 11:45 | PM.DS ---
DS: Admitting Diagnosis Discharge Date 04/01/22 1145 Admitting Diagnosis UTI DS: Discharge Diagnosis Discharge Diagnosis (1) Elevated troponin: Code(s): R77.8 - Other specified abnormalities of plasma proteins Status: Acute Assessment and Plan: Elevated however flat Cardiology consulted Echo is normal Outpatient follow up post discharge (2) Coronary artery disease: Code(s): I25.10 - Atherosclerotic heart disease of [place] coronary artery without angina pectoris Status: Chronic Assessment and Plan: Patient with initially elevating troponins, however they are no decreasing. Cardiology consulted and do not have the opinion that patient is having acute coronary syndrome. Echo performed today with an EF of 65%. continue current medications and monitor on telemetry (3) Insulin dependent type 2 diabetes mellitus: Code(s): E11.9 - Type 2 diabetes mellitus without complications; Z79.4 - regional intermodal truck driver (current) use of insulin Status: Chronic Assessment and Plan: Accu-Cheks AC and HS diabetic diet sliding scale insulin low-dose in conjunction with NPH 40 units at bedtime. Continue metformin 1000 mg b.i.d.. Hypoglycemic protocol in place. Hemoglobin A1c is 8.0 (4) Hypertension: Code(s): I10 - Essential (primary) hypertension Status: Chronic Assessment and Plan: continue home medications currently stable continue to monitor vitals (5) Hyperlipidemia: Code(s): E78.5 - Hyperlipidemia, unspecified Status: Chronic Assessment and Plan: continue statin therapy (6) Obstructive sleep apnea: Code(s): G47.33 - Obstructive sleep apnea (adult) (pediatric) Status: Chronic Assessment and Plan: CPAP at bedtime. (7) Urinary tract infection: Code(s): N39.0 - Urinary tract infection, site not specified Status: Acute Assessment and Plan: urine culture grew out E coli. Sensitivity pending continue Rocephin IV today pending sensitivity. Continue oral cefdinir (8) Heart failure with preserved ejection fraction: Code(s): I50.30 - Unspecified diastolic (congestive) heart failure Status: Acute Assessment and Plan: Echocardiogram performed today. Ejection fraction 65%. No stenosis. (9) Abnormal urinalysis: Code(s): R82.90 - Unspecified abnormal findings in urine Status: Acute Assessment and Plan: 03/31/22: See plan for problem 7. DS: Summary Hospital Course Hospital Course: Patient is a 71-year-old female with past medical history of coronary artery disease status post CABG, hypertension, hyperlipidemia, sleep apnea who was admitted to the IMU from [place] for elevated troponins. Troponins were noted to be elevated cardiology had been consulted. Troponins were flat at this time. Cardiology had an echo ordered an echo showed an EF of 65%. Telemetry showed no acute abnormalities. Patient was also noted to have an infectious you a and urine culture did come back with E coli. Patient was started on IV ceftriaxone and patient has been doing well. Patient does complain that she is still fatigued however she is ready to go and labs and vital signs are stable at this time. Patient currently denies any other issues including chest pain, shortness a breath, nausea, vomiting, diarrhea, constipation, weakness or fatigue. She was very proud that her legs had no swelling and she does look very good. Patient is going to discharge home. Status at Discharge Overall status at discharge: patient is not back to baseline Time Spent with Patient Time attestation: Total time spent providing and/or coordinating discharge services: 36 minutes Time spent: Greater than 30 minutes Specific discharge activities: Diagnostic testing, chart review, developing a treatment plan, education, care coordination documentation, physical exam, result review
[2022-04-01 12:09] LABS: Glucose Point of Care 147 mg/dl (65-105)
[2022-04-01] MEDS: BENZONATATE 100 MG CAPSULE 200 MG PO (12:10)
== END 2022-04-01 14:53 | disposition home or self-care (01) | DRG 689 ==
PROVIDERS: Nurse Practitioner Adult Health; Physician Assistant; Admitting Provider Internal Medicine; PCP Internal Medicine; Visit Provider Nurse Practitioner
DX: N39.0 Urinary tract infection, site not specified (principal); I50.31 Acute diastolic (congestive) heart failure; B96.20 Unspecified Escherichia coli [E. coli] as the cause of diseases classified elsewhere; I11.0 Hypertensive heart disease with heart failure; R77.8 Other specified abnormalities of plasma proteins; E11.9 Type 2 diabetes mellitus without complications; I25.10 Atherosclerotic heart disease of native coronary artery without angina pectoris; E78.5 Hyperlipidemia, unspecified; D64.9 Anemia, unspecified; G47.33 Obstructive sleep apnea (adult) (pediatric); I44.7 Left bundle-branch block, unspecified; M19.90 Unspecified osteoarthritis, unspecified site; Z95.1 Presence of aortocoronary bypass graft; Z86.16 Personal history of COVID-19; Z79.4 Long term (current) use of insulin; Z79.82 Long term (current) use of aspirin
CPT/HCPCS: 36415; 80048; 80053; 82948; 83036; 83735; 83880; 84484; 85025; 85380; 87804; 93306; 93970; 94640; 96365; 96372; 96375; A9270; G0378; J0696; J1650; J1815; J1940

== ENCOUNTER 2022-05-19 11:46 | Outpatient (CLI) | payer MEDICARE, SELFPAY ==
--- NOTE | 2022-05-19 11:52 | EST_ITS ---
Patient Info Name: Melissa Molina Age: 71 years : 1950 Gender: Female Ht: 65 in Wt: 235 lbs BSA: 2.26 m2 Exam Date: 05/19/2022 1:31 PM Exam Location: [facility] Patient Status: Outpatient Admit Date: 05/19/2022 Staff Ordering Physician: Patrick Cadena DO Attending Provider: Patrick Cadena DO Exam Type: CA stress nancy w NM Summary 1. 1. Inconclusive lexiscan stress test for ischemic ST changes by ECG criteria due to baseline LBBB. 2. 2. Baseline hypertension. 3. 3. Nuclear scan to follow and will be reported separately. Please correlate with it. 4. 4. Patient informed of the above results. Protocol: LEXISCAN Stress ECG Details Stage: REST Duration (min): 2 min : 25 sec HR (bpm): 57 SBP (mmHg): 158 DBP (mmHg): 67 Stage: REST Duration (min): 7 min : 32 sec HR (bpm): 58 SBP (mmHg): 158 DBP (mmHg): 67 Stage: STAGE 1 Duration (min): 0 min : 11 sec HR (bpm): 55 SBP (mmHg): 158 DBP (mmHg): 67 Stage: RECOVERY Duration (min): 0 min : 48 sec HR (bpm): 60 SBP (mmHg): 158 DBP (mmHg): 67 Stage: RECOVERY Duration (min): 1 min : 48 sec HR (bpm): 62 SBP (mmHg): 158 DBP (mmHg): 67 Stage: RECOVERY Duration (min): 2 min : 48 sec HR (bpm): 59 SBP (mmHg): 143 DBP (mmHg): 56 Stage: RECOVERY Duration (min): 3 min : 48 sec HR (bpm): 60 SBP (mmHg): 143 DBP (mmHg): 56 Stage: RECOVERY Duration (min): 4 min : 48 sec HR (bpm): 58 SBP (mmHg): 143 DBP (mmHg): 64 Stage: RECOVERY Duration (min): 5 min : 48 sec HR (bpm): 60 SBP (mmHg): 145 DBP (mmHg): 61 Stage: RECOVERY Duration (min): 6 min : 5 sec HR (bpm): 59 SBP (mmHg): 145 DBP (mmHg): 61 Rest HR: 58 bpm Peak HR: 64 bpm Rest Sys BP: 158 mmHg Peak Sys BP: 145 mmHg Max Pred HR: 147 bpm % Max Pred HR: 44 % Target HR: 125 bpm Max RPP: 9,280 bpm*mmHg Termination Reason: Completed protocol Cardiac Symptoms: Shortness of breath Total Time: 0 min : 11 sec Rest Cardoso BP: 67 mmHg Peak Cardoso BP: 61 mmHg Total Dose: 0.4 mg Resting ECG Sinus rhythm, LBBB. Stress ECG No ST changes. Arrhythmias None. Report Signatures
--- NOTE | 2022-05-19 15:11 | WPDCARIOSTRE ---
Nuclear Stress Test INDICATIONS Indications: Chest pain PROCEDURE Procedure Performed: Myocardial Perf Spect-Multi Procedure: Patient underwent a lexiscan stress test and immediately was injected with 29.7 mCi of cardiolyte. Multiple tomographic images were obtained. There is a large, severe anteroapical perfusion defect and basal to apical lateral wall perfusion defect during stress imaging. A separate resting images were obtained after patient was injected with 9.6 mCi of cardiolyte. Multiple tomographic images were obtained. There is basal lateral wall perfusion defect during rest imaging. CONCLUSION Conclusion: 1. Abnormal myocardial perfusion imaging demonstrating large anteroapical and partial lateral wall perfusion defects suggestive of reversible ischemia. 2. Left ventriculogram demonstrates anteroapical and lateral wall hypokinesis with measured ejection fraction of 47%. 3. TID score 0.97 is normal.
== END 2022-05-19 11:47 | disposition home or self-care (01) ==
LOC: CHSCARD 11:48
PROVIDERS: PCP Internal Medicine; Visit Provider Internal Medicine Cardiovascular Disease
DX: I25.810 Atherosclerosis of coronary artery bypass graft(s) without angina pectoris (principal); R94.39 Abnormal result of other cardiovascular function study
CPT/HCPCS: 78452; 93017; A9502; J2785

== ENCOUNTER 2022-06-10 00:59 | Day surgery (SDC) | payer MEDICARE, SELFPAY ==
[2022-06-09 13:33] VITALS: BMI 38.3
[2022-06-10] VITALS (9 sets, daily range): BP systolic 141–170; BP diastolic 53–76; PULSE 53–59; RESP 11–16; TEMP 36.6; O2SAT 91–98; BMI 39.9
[2022-06-10 08:49] LABS: Basophils Absolute Auto 0.1 K/mm3 (0.0-0.1); Basophils Percent Auto 0.8 % (0.2-1.2); Eosinophils Absolute Auto 0.1 K/mm3 (0-0.3); Eosinophils Percent Auto 1.8 % (0-4.4); Hematocrit 38.7 % (37.0-47.0); Hemoglobin 12.3 g/dL (12.0-15.0); Immature Granulocyte Absolute 0.01 K/mm3 (0.00-0.031); Immature Granulocyte Percent A 0.2 % (0-0.5); Lymphocytes Absolute Auto 2.94 K/mm3 (0.9-3.2); Lymphocytes Percent Auto 47.7 % (18.3-44.2); Mean Corpuscular HGB Conc 31.8 g/dl (32-36); Mean Corpuscular Hemoglobin 28.3 pg (26-34); Mean Corpuscular Volume 89.2 fl (80-100); Mean Platelet Volume 11.2 fl (7.4-10.4); Monocytes Absolute Auto 0.6 K/mm3 (0.1-0.6); Monocytes Percent Auto 9.4 % (2.6-8.5); Neutrophils Absolute Auto 2.5 K/mm3 (1.3-6.7); Neutrophils Percent Auto 40.1 % (45.5-73.1); Platelet Count Result 210 k/mm3 (150-375); Red Blood Count 4.34 M/mm3 (4.2-5.4); Red Cell Distribution Width 14.4 % (11.5-14.5); White Blood Count 6.2 K/mm3 (4.5-10.0)
[2022-06-10 09:00] LABS: Anion Gap 5 mmol/L (8-16); Blood Urea Nitrogen 20 mg/dL (7-17); Calcium 9.7 mg/dL (8.4-10.2); Carbon Dioxide 29 mmol/L (22-30); Chloride 100 mmol/L (98-107); Estimated CRCL calculation 103 ml/min; Estimated Glomerular Filt Rate > 60; Glucose 161 mg/dL (65-110); Potassium 4.3 mmol/L (3.4-5.0); Sodium 134 mmol/L (137-145)
--- NOTE | 2022-06-10 11:20 | WPDHPUPDATE1 ---
History and Physical Update Update Date/Time: 06/10/22 11:20 History and Physical has been reviewed, including an updated exam of the patient. There are NO changes in the patient's condition. Risks, benefits, and alternatives have been discussed and questions answered. Patient agrees to proceed with procedure.
--- NOTE | 2022-06-10 11:20 | WPDMODSED ---
Moderate Sedation Note-Pt Data Patient Data Diagnosis: CAD s/p CABG Present Complaint: CAD s/p CABG Procedure to be performed/Plan: Coronary angiography, Bypass graft angiography, C Allergies Allergy/AdvReac Type Severity Reaction Status Date / Time Penicillins Allergy Unknown Hives Verified 06/10/22 08:33 adhesive Allergy Rash Verified 06/10/22 08:33 Home Medications Medication Instructions Recorded Confirmed Type carvedilol 12.5 mg tablet 12.5 mg PO BID 05/17/19 06/09/22 History insulin NPH isoph U-100 human 100 40 unit subcut HS 05/17/19 06/09/22 History unit/mL subcutaneous suspension (Humulin N NPH U-100 Insulin (isophane susp)) losartan 100 mg tablet 100 mg PO HS 05/17/19 06/09/22 History metformin 1,000 mg tablet 1,000 mg PO BID 05/17/19 06/09/22 History pravastatin 10 mg tablet 10 mg PO HS 05/17/19 06/09/22 History aspirin 81 mg tablet,delayed 81 mg PO DAILY 01/21/21 06/09/22 History release (Adult Aspirin Regimen) hydrochlorothiazide 25 mg tablet See Rx Instructions .Route 04/25/22 06/09/22 Rx .COMPLEX #30 tabs amlodipine 10 mg tablet See Rx Instructions .Route 05/12/22 06/09/22 Rx .COMPLEX #30 tabs ascorbic acid (vitamin C) 500 mg 500 mg PO DAILY 06/09/22 06/09/22 History tablet cholecalciferol (vitamin D3) 125 125 mcg PO BID 06/09/22 06/09/22 History mcg (5,000 unit) tablet (Vitamin D3) magnesium 250 mg tablet 250 mg PO BID 06/09/22 06/09/22 History multivitamin 1 tablet PO DAILY 06/09/22 06/09/22 History vitamin B complex (B 1 tablet PO DAILY 06/09/22 06/09/22 History Complex-Vitamin B12 tablet) vitamin E 184 mcg PO DAILY 06/09/22 06/09/22 History Current Medications: Active Medications Sodium Chloride (Normal Saline Iv) 500 mls @ 100 mls/hr IV CONT .Q5H KATHY Sedation/Anesthesia: No previous sedation/anesthesia problems (including family history). [facility] Past Medical History Medical History Arthritis Coronary artery disease Heart failure with preserved ejection fraction Hyperlipidemia Hypertension Insulin dependent type 2 diabetes mellitus Obstructive sleep apnea Surgical History Surgical History History of coronary artery bypass graft (10/2010) Family History Family History Father Family history of diabetes mellitus in first degree relative Family history of heart disease in male family member before age 55 Mother Family history of diabetes mellitus in first degree relative Family history of heart disease in male family member before age 55 Social History Social History Social History: Surrogate medical decision maker: Sohail Francoiswell, spouse. Code status: Full code. Smoking packs per day: 0.25 Smoking cigarettes per day: 5.0 Years smoked: 2 Smoking pack-years: 0.50 Smoking status: Former smoker Tobacco type: cigarettes Second hand tobacco smoke exposure: No Additional smoking assessment comments: Quit in her 20's Alcohol intake: never Substance use: never Substance use type: does not use Lack of Transportation: No Lack of Food: Never True Current Housing: I Have Housing Concerned About Future Housing: No Difficulty Paying Gas/Electric Bills: No Difficulty Paying for Meds: No Currently Unemployed: No Education: High School Diploma/GED Difficulty w/ Childcare or Family Care: No Living arrangements: with family Spiritual care concerns: No Mod Sed Physical Exam Physical Exam Pre Procedural Exam: Normal: Appearance, Airway, Heart Rate, Heart Rhythm, Neuro Exam, Abdomen, Extremities and Skin Hours since solid foods: 12 Hours since liquid intake: 8 Mallampati Classification: class III Internal Medicine - PN: Obj Da Vital Signs Vital Signs: Vital Signs - 24 hr 06/10/22 08:36
--- NOTE | 2022-06-10 11:22 | WPDCARDPROC ---
Cardiac Cath Procedure Note Date of procedure:: 06/10/22 Performing physician:: CATHETERIZATION LABORATORY REPORT Procedure Date: 06/10/2022 Peoplesoft Developer: Marito Martin M.D., [facility]? Referring Physician: Dr. Cadena ? Anesthesia: Versed and Fentanyl were ordered and given in my presence at 10:08, procedure ended at 11:17. Supervision of nurse monitored moderate sedation with Versed and Fentanyl was provided for 69 minutes. Total of Versed 2mg and Fentanyl 100mcg were administered by the Physical Therapy Aides Teacher RN Homa Yu. Pre-op Diagnosis: CAD s/p CABG Post-op Diagnosis: 1. 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 Left ventricular end-diastolic pressure of 30mmHg 3. Patent BAILEY-LAD, patent radial to OM, patent SVG-Diagonal, patent SVG-RPDA bypass grafts. Procedure(s): 1. Moderate sedation 2. Ultrasound-guided access of the right common femoral artery 3. Coronary angiography 4. Bypass graft angiography 5. Left heart cath 6. Aortogram 7. Angioseal closure of the right common femoral artery Access Site: Right common femoral artery Brief History and Clinical Indications: Patient is a 71-year-old female with a history of CAD s/p 4-V CABG in 2010 who is referred for cardiac cath for anginal symptoms in the setting of abnormal stress test. All risks, benefits and alternatives to left heart catheterization with or without percutaneous coronary intervention was discussed at length with the patient. Risk of complications including but not limited to bleeding, infection, arrhythmia, stroke, worsening kidney function, blood loss, groin hematoma, limb loss, emergency coronary artery bypass grafting, and even were discussed with the patient and all questions were answered. The patient understood and wished to proceed. Time out called, patient name, date of , medical record number, allergies, procedure performed, identify Peoplesoft Developer, patient and staff member concurred with accurate data, procedure carried on. Findings: LEFT HEART CATHETERIZATION FINDINGS: 1. Left main: The left main coronary artery is patent without any significant obstructive disease. 2. Left anterior descending: The LAD is a heavily calcified vessel. The LAD is completely occluded after the takeoff of the first septal branch. There is a small caliber diagonal vessel that is diffusely diseased. Immediately distal to the BAILEY touchdown site, the distal LAD is of small caliber and has significant diffuse disease 3. Left circumflex: The left circumflex is a heavily calcified vessel. The proximal-mid LCX has mild diffuse disease. Remainder of the circumflex is diffusely diseased. OM-1 is a small caliber vessel that is diffusely diseased. OM-2 is occluded. OM-3 is a small caliber vessel that is diffusely diseased. 4. Right coronary artery: The RCA is the dominant vessel and is heavily calcified. The RCA is DIRECTOR PUBLIC in its proximal section. There are [id number]-[id number] collaterals filling the distal RPDA. 5. Left ventricle: A. End-diastolic pressure 30mmHg. B. LV gram deferred. C. No significant gradient across aortic valve on catheter pullback. 6. Bypass graft angiography: A. BAILEY-LAD: Widely patent. Provides antegrade flow to the distal LAD. Immediately distal to the touchdown site, the distal LAD is of small caliber and has significant diffuse disease. Provides little retrograde flow to the LAD. B. Radial to OM: Patent. Distal to the touchdown site, the OM is of small caliber and diffusely diseased. C. SVG to Diagonal: Patent. Distal to the touchdown site, the Diagonal is of small caliber and has mild diffuse disease. D. SVG to RPDA: Patent. Distal to the touchdown site, the RPDA is of small caliber and diffusely diseased. Description of Procedure: Informed consent signed and placed in the chart. Patient transferred to recyclable materials distributor room. Prepped and draped in usual sterile fashion. 2% lidocaine in right groin area. Micropuncture needle used to access right c
== END 2022-06-10 14:30 | disposition home or self-care (01) ==
PROVIDERS: PCP Internal Medicine; Visit Provider Internal Medicine
PROC: 4A023N7 Measurement of Cardiac Sampling and Pressure, Left Heart, Percutaneous Approach (ICD-10-PCS; CPT 93459; principal; 2022-06-10 10:00)
DX: I25.10 Atherosclerotic heart disease of native coronary artery without angina pectoris (principal); R94.39 Abnormal result of other cardiovascular function study; Z95.1 Presence of aortocoronary bypass graft; I11.0 Hypertensive heart disease with heart failure; I50.9 Heart failure, unspecified; E11.9 Type 2 diabetes mellitus without complications; E78.5 Hyperlipidemia, unspecified; G47.33 Obstructive sleep apnea (adult) (pediatric); Z79.4 Long term (current) use of insulin; Z79.84 Long term (current) use of oral hypoglycemic drugs; Z79.82 Long term (current) use of aspirin; Z87.891 Personal history of nicotine dependence
CPT/HCPCS: 36415; 80048; 85025; 93459; C1760; C1769; C1887; C1894; G0269; J1644; J2250; J3010; J7040

== ENCOUNTER 2022-10-20 13:37 | Emergency (ER) | payer MEDICARE, SELFPAY ==
--- NOTE | ~2022-10-20 | XR_ITS ---
EXAMINATION: XR foot LT min 3V DATE: 10/20/2022 14:21 INDICATION: Left great toe pain and swelling. TECHNIQUE: 4 views of left foot were obtained. COMPARISON: None. FINDINGS: There is mild hallux valgus. No fracture. There is plate and screw fixation of distal fibul a. There is mild osteoarthritis of first and fifth metatarsophalangeal joints and some of the interph alangeal joints and midfoot joints. There are enthesophytes at the posterior and plantar aspects of c alcaneal tuberosity. There are 3 linear radiopaque foreign bodies in the soft tissues of the medial f orefoot measuring up to 6 mm in length. IMPRESSION: 1. 3 linear radiopaque foreign bodies in the soft tissues of the medial forefoot measuring up to 6 mm in length. 2. Polyarticular osteoarthritis. 3. Mild hallux valgus. Reviewed, dictated and finalized at location A. IMPRESSION: 1. 3 linear radiopaque foreign bodies in the soft tissues of the medial forefoo t measuring up to 6 mm in length. 2. Polyarticular osteoarthritis. 3. Mild hallux valgus.
[2022-10-20 13:40] VITALS: BP 160/75; PULSE 63; RESP 20; TEMP 36.9; O2SAT 96
--- NOTE | 2022-10-20 13:41 | ED.EXTPRO ---
HPI - Extremity Problem General Chief complaint: Extremity Problem,Nontraumatic Stated complaint: left big toe pain Time Seen by Provider: 10/20/22 13:41 Source: patient Mode of arrival: ambulatory Limitations: no limitations History of Present Illness HPI Narrative: 72-year-old white female with a history of hypertension, diabetes, presents with about a 4 day history of left great toe erythema, swelling, and pain. She recently started a new medication for diabetes and was wondered whether it could have triggered gout which an uncle of hers has. ETT denies any fever or chills, denies change in diet, denies poly tibia, polyuria. Denies any recent injury to the left foot. she also denies any recent sinus drainage, sore throat, coughing, chest pain, palpitations, near-syncope or syncope. Denies abdominal pain, nausea vomiting, diarrhea constipation, dysuria urgency or frequency. Related Data Home Medications Medication Instructions Recorded Confirmed carvedilol 12.5 mg tablet 12.5 mg PO BID 05/17/19 10/20/22 insulin NPH isoph U-100 human 100 40 unit subcut HS 05/17/19 10/20/22 unit/mL subcutaneous suspension (Humulin N NPH U-100 Insulin (isophane susp)) losartan 100 mg tablet 100 mg PO HS 05/17/19 10/20/22 metformin 1,000 mg tablet 1,000 mg PO BID 05/17/19 10/20/22 pravastatin 10 mg tablet 10 mg PO HS 05/17/19 10/20/22 aspirin 81 mg tablet,delayed 81 mg PO DAILY 01/21/21 10/20/22 release (Adult Aspirin Regimen) ascorbic acid (vitamin C) 500 mg 500 mg PO DAILY 06/09/22 10/20/22 tablet cholecalciferol (vitamin D3) 125 125 mcg PO BID 06/09/22 10/20/22 mcg (5,000 unit) tablet (Vitamin D3) magnesium 250 mg tablet 250 mg PO BID 06/09/22 10/20/22 multivitamin 1 tablet PO DAILY 06/09/22 10/20/22 vitamin B complex (B 1 tablet PO DAILY 06/09/22 10/20/22 Complex-Vitamin B12 tablet) vitamin E 184 mcg PO DAILY 06/09/22 10/20/22 Allergies Allergy/AdvReac Type Severity Reaction Status Date / Time Penicillins Allergy Unknown Hives Verified 10/20/22 13:41 adhesive Allergy Rash Verified 10/20/22 13:41 Review of Systems Review of Systems: All systems reviewed & are unremarkable except as noted in HPI and below (HPI) [facility] Past Medical History Medical History Arthritis Coronary artery disease Heart failure with preserved ejection fraction Hyperlipidemia Hypertension Insulin dependent type 2 diabetes mellitus Obstructive sleep apnea Surgical History Surgical History History of coronary artery bypass graft (10/2010) Family History Family History Father Family history of diabetes mellitus in first degree relative Family history of heart disease in male family member before age 55 Mother Family history of diabetes mellitus in first degree relative Family history of heart disease in male family member before age 55 Social History Social History Social History: Surrogate medical decision maker: Sohail Becerra, spouse. Code status: Full code. Smoking packs per day: 0.25 Smoking cigarettes per day: 5.0 Years smoked: 2 Smoking pack-years: 0.50 Smoking status: Former smoker Tobacco type: cigarettes Second hand tobacco smoke exposure: No Additional smoking assessment comments: Quit in her 20's Alcohol intake: never Substance use: never Substance use type: does not use Lack of Transportation: No Lack of Food: Never True Current Housing: I Have Housing Concerned About Future Housing: No Difficulty Paying Gas/Electric Bills: No Difficulty Paying for Meds: No Currently Unemployed: No Education: High School Diploma/GED Difficulty w/ Childcare or Family Care: No Living arrangements: with family Spiritual care concerns: No Exam Narrative:
[2022-10-20 13:44] VITALS: BP 160/75; PULSE 63; RESP 17; TEMP 36.9; O2SAT 96
[2022-10-20 14:18] LABS: Basophils Absolute Auto 0.03 K/mm3 (0.00-0.10); Basophils Percent Auto 0.3 % (0.0-1.0); Eosinophils Absolute Auto 0.08 K/mm3 (0.02-0.50); Eosinophils Percent Auto 0.8 % (1.0-6.0); Hematocrit 37.7 % (35.0-42.0); Hemoglobin 12.2 g/dL (11.7-13.8); Immature Granulocyte Absolute 0.04 K/mm3 (0.00-0.00); Immature Granulocyte Percent A 0.4 % (0.0-0.0); Lymphocytes Absolute Auto 3.54 K/mm3 (1.10-4.50); Mean Corpuscular HGB Conc 32.4 g/dL (32.0-36.0); Mean Corpuscular Hemoglobin 27.9 pg (27.0-31.0); Mean Corpuscular Volume 86.3 fL (78.0-102.0); Monocytes Absolute Auto 0.88 K/mm3 (0.10-0.90); Monocytes Percent Auto 9.2 % (2.0-11.0); Neutrophils Percent Auto 52.3 % (50.0-70.0); Platelet Count Result 237 K/mm3 (150-420); Red Blood Count 4.37 M/mm3 (4.20-5.40); Red Cell Distribution Width 14.6 % (11.6-14.4); White Blood Count 9.6 K/mm3 (4.8-10.8)
[2022-10-20 14:32] LABS: Alanine Aminotransferase 23 U/L (14-59); Albumin Level 3.1 g/dL (3.4-5.0); Alkaline Phosphatase 102 U/L (46-116); Anion Gap 12 mmol/L (8-16); Aspartate Amino Transferase 20 U/L (15-37); Blood Urea Nitrogen 15 mg/dL (7-18); Calcium 9.4 mg/dL (8.5-10.1); Carbon Dioxide 28 mmol/L (21-32); Chloride 99 mmol/L (98-108); Estimated CRCL calculation 61 ml/min; Estimated Glomerular Filt Rate > 60; Glucose 127 mg/dL (70-99); Osmolality Calculated 290 mOsm/kg (285-295); Sodium 139 mmol/L (136-145); Total Protein 7.7 g/dL (6.4-8.2); Uric Acid 6.4 mg/dL (2.6-6.0)
[2022-10-20 14:33] LABS: CRP 15.6 mg/dL (0.0-0.9)
[2022-10-20 15:19] LABS: Erythrocyte Sedimentation Rate 45 mm/hr (0-20)
[2022-10-20 15:50] VITALS: BP 137/60; PULSE 80; RESP 20; TEMP 36.9; O2SAT 93
[2022-10-20] MEDS: TETANUS,DIPHTHERIA,AC PERTUSSIS ADULT 0.5 ML (ADACEL) IM (16:10)
[2022-10-20 16:19] VITALS: BP 172/53; PULSE 60; RESP 18; TEMP 36.8; O2SAT 100
--- NOTE | 2022-10-26 14:54 | PC.NURSE ---
Final Blood Culture report: No growth after 5 days, no further treatment needed.
== END 2022-10-20 16:21 | disposition home or self-care (01) ==
PROVIDERS: Emergency Provider Emergency Medicine; PCP Internal Medicine
DX: E11.628 Type 2 diabetes mellitus with other skin complications (principal); L03.116 Cellulitis of left lower limb; S90.852A Superficial foreign body, left foot, initial encounter; I11.0 Hypertensive heart disease with heart failure; I50.9 Heart failure, unspecified; E78.5 Hyperlipidemia, unspecified; I25.10 Atherosclerotic heart disease of native coronary artery without angina pectoris; G47.33 Obstructive sleep apnea (adult) (pediatric); Z79.4 Long term (current) use of insulin; Z79.84 Long term (current) use of oral hypoglycemic drugs; Z79.82 Long term (current) use of aspirin; Z95.1 Presence of aortocoronary bypass graft; Z87.891 Personal history of nicotine dependence; X58.XXXA Exposure to other specified factors, initial encounter; Z23 Encounter for immunization
CPT/HCPCS: 36415; 73630; 80053; 84550; 85025; 85652; 86140; 87040; 90471; 90715; 99283

== ENCOUNTER 2024-07-23 12:36 | Emergency (ER) | payer MEDICARE, SELFPAY ==
[2024-07-23] VITALS (17 sets, daily range): BP systolic 116–154; BP diastolic 52–79; PULSE 55–58; RESP 18–20; TEMP 36.2; O2SAT 94–98
--- NOTE | ~2024-07-23 | XR_ITS ---
EXAMINATION: XR chest 2V DATE: 07/23/2024 13:11 INDICATION: Congestive heart failure and cough TECHNIQUE: PA and lateral views of the chest were obtained. COMPARISON: Chest radiograph dated 03/30/2022 FINDINGS: The lungs are clear with no focal airspace opacities, pulmonary edema, pleural effusion or pneumothor ax. The cardiomediastinal silhouette is normal. Median sternotomy wires and mediastinal surgical clip s are seen, likely from prior coronary artery bypass grafting. IMPRESSION: 1. No acute cardiopulmonary disease. Reviewed, dictated and finalized at location A. RECRUITER
--- OUTSIDE RECORDS SUMMARY | 2024-07-23 12:44 | XMS_ITS ---
Author Organization [facility] Address [address] [place] [address] Care Team Providers Care Running Rigger Name Role Phone zzzzMigration, zzzzProvider Unavailable Unav ailable REASON FOR VISIT EMR-[facility] Encounters Encounter Location Date Provider Diagnosis [facility] [address] [place] [address] 03/22/2023 zzzzProvider zzzzMigration Plan Of Treatment No Information Progress Notes * Melissa WILLIS MDOB: [birth year] (73 yo F)Acc No.[id number]:03/22/2023 Patient: Kacy Melissa JUNG :1950 A ge:72 Y S ex:Female Address:[facility] [address] [place] [address], [id number] Subjective: * Chief Complaints: * E MR-Michael * Medical History: * Surgical History: * Hospitalization/Major Diagno stic Procedure: * Medications: Objective: * Vitals: * Physical Examination: Assessment: Plan: * Treatment: * Procedure Codes: * * Date:
--- OUTSIDE RECORDS SUMMARY | 2024-07-23 12:44 | XMS_ITS | Clinical Summary ---
Author Organization [facility] Address [address] [place] [address] Care Team Providers Care Processing Technologist Name Role Phone Louie Marie MD Primary Care Provider [phone] Allergies Active Allergy Reactions Criticality Noted Date Comments Adhesive Tape-Silicones Rash Reaction: RASH Penicillins Hives Reaction: HIVES Pollen Extracts Other (See comments) Reaction: NASAL CONGESTION, Propoxyphene Vomiting Reaction: VOMITTING, Propoxyphene-Acetaminop hen Vomiting Reaction: VOMITTING, Medications metFORMIN (GLUCOPHAGE) 1,000 mg tablet Acti ve HumuLIN N 100 unit/mL vial for injection Active hydroCHLOROthiaz joe (HYDRODIURIL) 25 mg tablet Active pravastatin (PRAVACHOL) 10 mg tablet Active fluoride, sodium, (SF 5000 Plus) 1.1 % cream Active amLODIPine (NORVASC) 10 mg tablet 03/04/2024 Active isosorbide mononitrate ER (IMDUR) 30 mg 24 hr tablet 01/04/2024 Active spironolactone-h ydroCHLOROthiazi de (ALDACTAZIDE) 25-25 mg per tablet 03/18/2024 Active aspirin 81 mg chewable tablet Take 1 tablet (81 mg total) by mouth daily Active carvediloL (COREG) 12.5 mg tablet Take 1 tablet (12.5 mg total) by mouth 2 (two) times a day with meals Active losartan (COZAAR) 100 mg tablet Take 1 tablet (100 mg total) by mouth daily Active Active Problems Problem Noted Date Diagnosed Date Neuropathy 03/23/2024 Hypertensive disorder 05/29/2021 Pain in left foot 05/29/2021 Pain in right foot 05/29/2021 Resolved Problems Problem Noted Date Diagnosed Date Resolved Date Abnormal mammogram 02/09/2023 Ingrowing nail 05/29/2021 03/23/2024 Surgical History Surgery Date Site/Laterality Comments HYSTERECTOMY OOPHORECTOMY BREAST BIOPSY 02/09/2023 Left Medical History Medical History Date Comments Fibrocystic breast Abnormal mammogram 02/09/2023 Ingrowing nail 05/29/2021 Family History Medical History Relation Name Comments Lung cancer Mother's Brother Colon cancer Paternal Grandfather Breast cancer Neg Hx Ovarian cancer Neg Hx Thyroid cancer Neg Hx Relation Name Status Comments Mother's Brother Paternal Grandfather Social History Tobacco Use Types Packs/Day Years Used Date Smoking Tobacco: Never Tobacco Cessation:Counseling Given: Not Answered AUDIT-C Answer Date Recorded Q1: How often do you have a drink containing alcohol? Never 02/09/2023 Q2: How many drinks containi ng alcohol do you have on a typical day when you are drinking? Patient does not drink Q3: How often do you have si x or more drinks on one occasion? Never 02/09/2023 Comments No Sex and Gender Information Value Date Recorded Sex Assigned at Not on file Legal Sex Female 1:57 PM MACHINE FANCY STITCHER Gender Identity Not on file Sexual Orientation Not on file Obstetrics History Para Term AB IAB SAB Ectopic Multiple Livin g Live Births 0 0 0 0 0 0 0 0 0 0 0 Last Filed Vital Signs Vital Sign Reading Time Taken Comments Blood Pressure - - Pulse - - Temperature - - Respiratory Rate - - Oxygen Saturation - - Inhaled Oxygen Concentration - - Weight 102.1 kg (225 lb) 02/09/2023 11:57 AM CDT Height 165.1 cm (5' 5 ) 02/09/2023 11:57 AM CDT Body Mass Index 37.44 02/09/2023 11:57 AM CDT Plan of Treatment Health Maintenance Due Date Last Done Comments Colon Cancer Screening-Colonoscopy 1950 Depression Screening 1950 Fall Risk Assessment 1950 Hepatitis C Screening 1950 Osteoporosis Screening-Bone Density Scan 1950 DTaP/Tdap/Td Vaccine (1 - Tdap) 08/08/1959 Hepatitis B Screening 1966 Zoster Vaccine (2 of 3) 06/08/2009 04/13/2009 Well Visit 65+ 2013 Pneumococcal vaccine 65+ (2 of 2 - PPSV23) 02/27/2017 02/28/2016 Influenza Vaccine (#1) 2024 9, 02/27/2018, 02/26/2017, Additional history exists Breast Cancer Screening-Mammogram Discontinued 03/23/2024, 12/23/2022, 09/21/2021, Additional history exists Medical Devices Implanted Type Area Living Supervisor Device Identifier Shelf Expiration Date Model / Serial / Lot [employer] [facility] Eviva 13cm Identifier Biopsy Site [id number] - [id number] Implanted:Qty: 1 on 02/09/2023 by Brielle Garcia MD at [facility] [employer] [id number] [facility]02/20[facility] / [id number] Procedures Procedure Name Priority Date/Time Associated Diagnosis Comments SCREENING MAMMOGRAM BILATERAL W BALA Schedule Routine, Read Routine (OP Routine) 03/23/2024 3:48 PM CDT Breast cancer screening by mammogram from Last 3 Months or Most Recently Relevant to Health Maintenance Results * Screening Mammogram Bilateral W Bala (03/23/2024 3:48 PM CDT) Anatomical Region Laterality Modality Breast Bilateral Mammography Narrative 03/24/2024 11:30 AM CDT Mammogram Technique: Bilateral Digital Breast Tomosynthesis, Bilateral C-view 2D Screening mammogram. Views obtained: bilateral craniocaudal and bilateral mediolateral oblique. Computer Aided Detection was performed. Mammogram Findings: The present examination has been compared to prior imaging studies performed at [facility]. [facility] on 09/21/2021, 12/23/2022 and 12/29/2022. There are scattered areas of fibroglandular density. There is no suspicious abnormality in either breast. Impression: There is no mammographic evidence of malignancy. Annual screening mammography is recommended. OVERALL FINAL ASSESSMENT: BI-RADS CATEGORY 1: Negative. Procedure Note Ilsa Alvarez MD - 03/24/2024 Mammogram Technique: Bilateral Digital Breast Tomosynthesis, Bilateral C-view 2D Screening mammogram. Views obtained: bilateral craniocaudal and bilateral mediolateral oblique. Computer Aided Detection was performed. Mammogram Findings: The present examination has been compared to prior imaging studies performed at [facility]. [facility] on 09/21/2021, 12/23/2022 and 12/29/2022. There are scattered areas of fibroglandular density. There is no suspicious abnormality in either breast. Impression: There is no mammographic evidence of malignancy. Annual screening mammography is recommended. OVERALL FINAL ASSESSMENT: BI-RADS CATEGORY 1: Negative. Isidra Cooney ELECTRIC MOTOR AND GENERATOR ASSEMBLER IMG MAMMO PROCEDURES Fi nal Result from Last 3 Months or Most Recently Relevant to Health Maintenance Insurance [facility] Care Teams Processing Technologist Relationship Specialty Start Date End Date Louie Marie MD PCP - General 12/23/16
--- OUTSIDE RECORDS SUMMARY | 2024-07-23 12:44 | XMS_ITS | Clinical Summary ---
Author Organization [facility] Address [address] [place] [address] Phone Care Team Providers Care Ict Support Technicians Name Role Phone Louie Marie MD Primary Care Provider [phone] Rom Plata MD Unavailable Medications amLODIPine (NORVASC) 10 MG Tablet 03/04/2024 Active aspirin 81 MG Chewable Tablet Take 81 mg by mouth daily. Active carvedilol (COREG) 12.5 MG Tablet Take 12.5 mg by mouth. Active hydroCHLOROthiazi de 25 MG Tablet Acti ve insulin NPH (HumuLIN N) 100 UNIT/ML Suspension Active isosorbide mononitrate (IMDUR) 30 MG TABLET SR 24 HR 01/04/2024 Act sravani losartan (COZAAR) 100 MG Tablet Take 100 mg by mouth daily. Active metFORMIN (GLUCOPHAGE) 1000 MG Tablet Active pravastatin (PRAVACHOL) 10 MG Tablet Active SODIUM FLUORIDE, DENTAL GEL, 1.1 % Cream Active spironolactone-hy drochlorothiazide (ALDACTAZIDE) 25-25 MG Tablet 03/18/2024 Act sravani Encounters Date Type Department Care Team Description 06/27/2024 Telephone [facility] Endocrinology - [place] [place] [address] Rom Plata MD Medication Management 04/22/2024 1:00 PM CONTAINER WASHER MACHINE Office Visit [facility] Endocrinology - [address] [place] [address] Rom Plata MD Type 2 diabetes mellitus with diabetic polyneuropathy, with long-term current use of insulin (HCC) (Primary Dx); Class 2 severe obesity due to excess calories with serious comorbidity and body mass index (BMI) of 39.0 to 39.9 in adult (HCC); Medication dose changed; Financial difficulty Discharge Disposition: Discharged to home or Selfcare 04/22/2024 Travel from Last 3 Months Immunizations Immunization Administration Dates Next Due Influenza Vaccine, Quadrivalent, PF 03/10/2019,1 06/26/2014 Influenza, High-dose, Quadrivalent 03/09/2023 Influenza, Quadrivalent, Adjuvanted 03/05/2021 Influenza, Seasonal, Injectable, Undefined 02/26,03/14/2016 Influenza, Trivalent, Adjuvanted, PF 04/13/2024, 02/27/2018 Influenza, high-dose, trivalent, PF 03/07/2014 Pneumococcal Vaccine - 13 Valent 02/28/2016 Pneumococcal Vaccine Adult - 23 Valent 9 RSV, Bivalent, Protein Subun it Rsvpref, Diluent Reconstit (Abrysvo) 03/09/2023 TDAP Vaccine 10/20/2022 Zoster Vaccine Recombinant 08/18/2022,05/16/2022 Zoster Vaccine, live 04/13/2009 Social History Tobacco Use Types Packs/Day Years Used Date Smoking Tobacco: Never Assessed Tobacco Cessation:Counseling Given: No Alcohol Use Standard Drinks/Week Comments Never 0 (1 standard drink = 0.6 oz pur e alcohol) Sexually Active Control Partners Comments Not Currently Male Condom Male Comments No Sex and Gender Information Value Date Recorded Sex Assigned at Not on file Legal Sex Female 11:58 PM CDT Gender Identity Not on file Sexual Orientation Not on file Last Filed Vital Signs Vital Sign Reading Time Taken Comments Blood Pressure 127/82 04/22/2024 1:01 PM CONTAINER WASHER MACHINE Pulse 52 04/22/2024 1:01 PM CONTAINER WASHER MACHINE Temperature 36.2 C (97.1 F) 04/22/2024 1:01 PM CONTAINER WASHER MACHINE Respiratory Rate 22 04/22/2024 1:01 PM CONTAINER WASHER MACHINE Oxygen Saturation 94% 04/22/2024 1:01 PM CONTAINER WASHER MACHINE Inhaled Oxygen Concentration - - Weight 106.6 kg (235 lb) 04/22/2024 1:01 PM CONTAINER WASHER MACHINE Height 165.1 cm (5' 5 ) 04/22/2024 1:01 PM CONTAINER WASHER MACHINE Body Mass Index 39.11 04/22/2024 1:01 PM CONTAINER WASHER MACHINE Plan of Treatment Upcoming Encounters Date Type Department Care Team (Late st Contact Info) Description 07/25/2024 1:30 PM CONTAINER WASHER MACHINE Office Visit [facility] - Endocrinology - [place] [address] [place] [id number] Rom Plata MD [address] [address] Health Maintenance Due Date Last Done Comments DEXA Bone Density 1950 Hepatitis C Virus (HCV) Screening 1950 Colonoscopy 1993 Colorectal Cancer Screening 1993 Cologuard 1998 Immunochemical Fecal Occult Blood 1998 SARS-COV-2 Immunization ( season) 2024 04/13/2024, 03/09/2023, 05/16/2022, Additional history exists Td Immunization Every 10 Years (Adults With 1 Tdap) 10/20/2032 10/20/2022 Pneumococcal Immunization (50+ years) Completed 04/18/2019, 02/28/2016 Zoster Immunization Completed 08/18/2022, 05/16/2022, 04/13/2009 TdaP Immunization Discontinued 10/20/2022 Respiratory Syncytial Virus (RSV) Immunization (Adult) Completed 03/09/2023 Influenza Immunization Completed , 03/09/2023, 03/05/2021, Additional history exists Hepatitis B Immunization Aged Out No longer eligible based on patient's age to complete this topic Meningococcal Immunization (ACWY) Aged Out No longer eligible based on patient's age to complete this topic Rotavirus Immunization Aged Out No lo nger eligible based on patient's age to complete this topic Insurance [facility]ARE [facility] Care Teams Ict Support Technicians Relationship Specialty Start Date End Date Louie Marie MD [address] [place] [address] PCP - General Internal Medicine 02/18/24 Rom Plata MD [address] [phone] Consulting Physician Endocrinology 04/20/24
--- OUTSIDE RECORDS SUMMARY | 2024-07-23 12:44 | XMS_ITS | Clinical Summary ---
Author Organization [facility] Address [address] [place] [address] Care Team Providers Care Director Of Reservations Name Role Phone Unavailable Primary Care Provider Unavailabl e Social History Tobacco Use Types Packs/Day Years Used Date Smoking Tobacco: Never Assessed Comments Unknown Sex and Gender Information Value Date Recorded Sex Assigned at Not on file Legal Sex Female 12:19 PM CDT Gender Identity Not on file Sexual Orientation Not on file Last Filed Vital Signs Vital Sign Reading Time Taken Comments Blood Pressure - - Pulse - - Temperature - - Respiratory Rate - - Oxygen Saturation - - Inhaled Oxygen Concentration - - Weight 108.9 kg (240 lb) 10/02/2015 9:50 AM CDT Height 165.1 cm (5' 5 ) 10/02/2015 9:50 AM CDT Body Mass Index 39.94 10/02/2015 9:50 AM CDT Plan of Treatment Health Maintenance Due Date Last Done Comments Colorectal Cancer Screening Colonoscopy (10 Years) 1948 Hepatitis C 1966 DTaP, Tdap and Td Vaccines ( 1 - Tdap) 08/08/1967 Zoster Vaccines (1 of 2) 1998 Dexa Scan (General) 2013 Pneumococcal Vaccine: 65+ Ye ars (1 of 1 - PCV) 2013 RSV Immunization or 60+ Years (1 - 1-dose 75+ series) 08/08/2023 COVID-19 Vaccine ( - 2023-2 5 season) 2024 Influenza Adult (#1) 2024 Meningococcal B Vaccine Aged Out No l onger eligible based on patient's age to complete this topic Meningococcal Vaccine Aged Out No blayne vern eligible based on patient's age to complete this topic RSV Immunizations Under 20 Months Aged Out No longer eligible based on patient's age to complete this topic
--- OUTSIDE RECORDS SUMMARY | 2024-07-23 12:44 | XMS_ITS | Referral Summary ---
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 Gender Identity Not on file Sexual Orientation [...] 02/09/2023 11:57 AM CDT Plan of Treatment Not on file Medical Devices Implanted Type Area Apprentice Painter Brush Device Identifier Shelf Expiration Date Model / Serial / Lot [employer] Eviva 13cm Identifier Biopsy Site [id number] - [id number] Implanted:Qty: 1 on 02/09/2023 by Brielle Garcia MD at [facility] [employer] [id number] 10/02/2023 SMARK-EVIV A-13 / / [id number] Procedures Procedure Name Priority Date/Time Associated Diagnosis [...] compared to prior imaging studies performed at [facility]. [facility] on 09/21/2021, 12/23/2022 and 12/29/2022. [...] compared to prior imaging studies performed at [facility]. [facility] on 09/21/2021, 12/23/2022 and 12/29/2022. There are scattered areas of fibroglandular density. There is no suspicious abnormality in either breast. Impression: There is no mammographic evidence of malignancy. Annual screening mammography is recommended. OVERALL FINAL ASSESSMENT: BI-RADS CATEGORY 1: Negative. Isidra Cooney NP IMG MAMMO PROCEDURES Fi nal Result from Last 3 Months or Most Recently Relevant to Health Maintenance Insurance MEDICARE [facility] MEDICARE [facility] MEDICARE [facility] Address: [address] [address] [place] [address] [facility] Care Teams Manager In Home Relationship Specialty Start Date End Date Louie Marie MD PCP - General 12/23/16
--- OUTSIDE RECORDS SUMMARY | 2024-07-23 12:44 | XMS_ITS | Patient Health Record ---
Author Organization [facility] Address [address] [facility] [address] [place] [address] Support Name Relationship Address Phone Melissa Molina Guarantor Unknown [phone] Reason For Referral No Information Plan Of Treatment No Information Insurance Providers Payer Name Payer Address Payer Phone Subscriber Number Group Number Insured Name Patient Relationship to Insured Coverage Start Date Coverage End Date Mariana [address] [place] [address] [id number] Melissa Molina Self - patient is the insured 1
--- OUTSIDE RECORDS SUMMARY | 2024-07-23 12:44 | XMS_ITS ---
Author Organization [facility] chavo Address [address] [facility] [address] [place] [address] Care Team Providers Care Executive Director Contract Shop Name Role Phone zzzzMigration, zzzzProvider Unavailable Unav ailable REASON FOR VISIT EMR-[facility] Encounters Encounter Location Date Provider Diagnosis [facility] [address] [facility] [address] [place] [address] 03/21/2023 zzzzProvider zzzzMigration Plan Of Treatment No Information Progress Notes * Melissa WILLIS MDOB: [birth year] (73 yo F)Acc No.[id number]:03/21/2023 Patient: Kacy Melissa JUNG :1950 A ge:72 Y S ex:Female Address:[facility] [address] [place] [address], [address] Subjective: * Chief Complaints: * E MR-Michael * Medical History: * Surgical History: * Hospitalization/Major Diagno stic Procedure: * Medications: Objective: * Vitals: * Physical Examination: Assessment: Plan: * Treatment: * Procedure Codes: * * Date:
--- NOTE | 2024-07-23 12:58 | ED.GENADULT ---
HPI - General Adult General Chief complaint: Upper Respiratory Infection Stated complaint: shortness of breath Time Seen by Provider: 07/23/24 12:44 History of Present Illness HPI narrative: 73-year-old woman with a past medical history of chronic bronchitis, congestive heart failure, diabetes presents with a 10 day history of cough. She endorses dyspnea on exertion but denies any shortness of breath at Rest. She endorses new orthopnea, denies weight gain, denies new pedal edema. She denies any chest pain. She states that she had some fever and chills about a week ago but that is now resolved. Her was sick with a similar respiratory infection about a week ago as well. He was tested for flu and COVID and was negative. Patient's most recent echocardiogram on record is from 03/31/2022 and shows an EF of 60-65%. Regarding her chronic bronchitis, patient does not have an inhaler and has not used an inhaler recently. patient reports decreased fluid intake and p.o. intake over the past 7 days Related Data Home Medications ?Medication ?Instructions ?Recorded ?Confirmed ?Last Taken ?Type carvedilol 12.5 mg tablet 12.5 mg PO BID 05/17/19 04/14/24 06/10/22 07:00 History insulin NPH isoph U-100 human 100 40 unit subcut 05/17/19 04/14/24 06/09/22 History unit/mL subcutaneous suspension (Humulin N NPH U-100 Insulin (isophane susp)) pravastatin 10 mg tablet 10 mg PO HS 05/17/19 04/14/24 06/09/22 History aspirin 81 mg tablet,delayed 81 mg PO DAILY 01/21/21 04/14/24 06/09/22 History release (Adult Aspirin Regimen) ascorbic acid (vitamin C) 500 mg 500 mg PO DAILY 06/09/22 04/14/24 06/10/22 07:00 History tablet cholecalciferol (vitamin D3) 125 125 mcg PO BID 06/09/22 04/14/24 06/10/22 07:00 History mcg (5,000 unit) tablet (Vitamin D3) magnesium 250 mg tablet 250 mg PO BID 06/09/22 04/14/24 06/10/22 07:00 History multivitamin 1 tablet PO DAILY 06/09/22 04/14/24 06/10/22 07:00 History vitamin B complex (B 1 tablet PO DAILY 06/09/22 04/14/24 06/10/22 07:00 History Complex-Vitamin B12 tablet) vitamin E 184 mcg PO DAILY 06/09/22 04/14/24 06/10/22 07:00 History sitagliptin phosphate 25 mg tablet 25 mg PO DAILY 07/23/24 Unknown History (Januvia) spironolactone 25 tablet 07/23/24 Unknown History mg-hydrochlorothiazide 25 mg tablet Allergies Allergy/AdvReac Type Severity Reaction Status Date / Time Penicillins Allergy Unknown Hives Verified 07/23/24 13:09 adhesive Allergy Rash Verified 07/23/24 13:09 [facility] Past Medical History Medical History Arthritis Coronary artery disease Heart failure with preserved ejection fraction Hyperlipidemia Hypertension Insulin dependent type 2 diabetes mellitus Obstructive sleep apnea Surgical History Surgical History History of coronary artery bypass graft (10/2010) Family History Family History Father Family history of diabetes mellitus in first degree relative Family history of heart disease in male family member before age 55 Mother Family history of diabetes mellitus in first degree relative Family history of heart disease in male family member before age 55 Social History Social History Social History: Surrogate medical decision maker: Sohail Becerra, spouse. Code status: Full code. Smoking packs per day: 0.25 Smoking cigarettes per day: 5.0 Years smoked: 2 Smoking pack-years: 0.50 Smoking status: Former smoker Tobacco type: cigarettes Second hand tobacco smoke exposure: No Additional smoking assessment comments: Quit in her 20's Alcohol intake: never Substance use: never Substance use type: does not use Do You Feel Safe in your Home?: Yes Lack of Transportation: No Lack of Food: Never True Current Housing: I Have Housing Concerned About Future Housing: No Difficulty Paying Gas/Electric Bills: No Difficulty Paying for Meds: No Currently Unemployed: No Education: High School Diploma/GED Difficulty w/ Childcare or Family Care: No Living arrangements: with family Spiritual care concerns: No Exam Narrative: GEN: Awake, alert, and appropriate to situation. Well appearing, well nourished, nontoxic, NAD. HEENT: No rhinorrhea noted, mucous membranes moist. No scleral icterus or conjunctival injection. No redness or erythema posterior oropharynx. No anterior cervical lymphadenopathy. CV: Normal rate, regular rhythm, S1S2 no M/G/R. 2+ distal pulses all extremities. No peripheral edema noted. PULM: Non-labored respiration. Clear to auscultation bilaterally. No wheezes, rales, rhonchi. GI: Abdomen soft, non -tender to palpation. No rigidity, distention or guarding.? NEURO: Normal speech. No lateralizing or focal deficits noted. Course Vital Signs Vital signs: Vital Signs Temperature 36.2 C L 07/23/24 12:36 Pulse Rate 56 L 07/23/24 12:36 Respiratory Rate 20 07/23/24 12:36 Blood Pressure 154/79 H 07/23/24 12:36 Pulse Oximetry 97 07/23/24 12:36 Oxygen Delivery Room Air 07/23/24 12:36 Temperature 36.2 C L 07/23/24 12:36 Pulse Rate 56 L 07/23/24 13:01 Respiratory Rate 18 07/23/24 13:01 Blood Pressure 116/62 07/23/24 13:01 Pulse Oximetry 98 07/23/24 13:01 Oxygen Delivery Room Air 07/23/24 13:00 Medical Decision Making MDM Narrative Medical decision making narrative: Patient was placed in Room #:? 3 Independent Historian: none External Source Review: medical records and medication list Differential diagnosis includes but not limited to:? chest cold, bronchitis, CHF exacerbation, other reactive airway disease Medications were Reviewed: home medications Independently Interpreted by me: labs Medications, treatment, ED course: patient receive routine lab work including CBC and metabolic panel. Patient received a chest x-ray. Social situation impacting patients care: Lives independently in the community with her Shared decision making:? patient amenable to discharge to home after treatments outlined below. she agrees to follow-up with her primary care Accepting physician: Zarina DISCHARGE DIAGNOSIS: bronchitis, JUAN FRANCISCO DISPOSITION: home with self-care CONDITION AT DISCHARGE:? stable chest x-ray is not consistent with the heart failure exacerbation and metabolic panel shows patient is likely volume down with a mild JUAN FRANCISCO. she was also positive for influenza A.Discussed the findings with the patient and she agreed that her symptoms now do feel more like bronchitis exacerbations in the past than anything else. She once again to confirm decrease oral intake due to her coughing and feeling unwell. Plan to administer a 1 L fluid bolus and a nebulizer the patient to follow-up with her primary care doctor for management of her respiratory symptoms and recommended repeat BMP to confirm the kidney function has returned to normal. Otherwise discussed supportive care with the patient for her flu symptoms. Vital Signs Vital Signs: Vital Signs Temperature 36.2 C L 07/23/24 12:36 Pulse Rate 56 L 07/23/24 12:36 Respiratory Rate 20 07/23/24 12:36 Blood Pressure 154/79 H 07/23/24 12:36 Pulse Oximetry 97 07/23/24 12:36 Oxygen Delivery Room Air 07/23/24 12:36 Temperature 36.2 C L 07/23/24 12:36 Pulse Rate 56 L 07/23/24 13:01 Respiratory Rate 18 07/23/24 13:01 Blood Pressure 116/62 07/23/24 13:01 Pulse Oximetry 98 07/23/24 13:01 Oxygen Delivery Room Air 07/23/24 13:00 Lab Data 07/23/24 13:19 07/23/24 13:19 Labs: Lab Results 07/23/24 07/23/24 Range/Units 13:03 13:19 WBC 7.8 (4.8-10.8) K/mm3 RBC 5.14 (4.20-5.40) M/mm3 Hgb 14.2 H (11.7-13.8) g/dL Hct 44.6 H (35.0-42.0) % MCV 86.8 (78.0-102.0) fL MCH 27.6 (27.0-31.0) pg MCHC 31.8 L (32-36) g/dL RDW 15.9 H (11.6-14.4) % Plt Count 229 (150-420) K/mm3 MPV 11.0 (9.2-11.8) fl Sodium 140 (136-145) mmol/L Potassium 4.3 (3.5-5.1) mmol/L Chloride 103 (98-108) mmol/L Carbon Dioxide 28 (21-32) mmol/L Anion Gap 9 (4-12) mmol/L BUN 25 H (7-18) mg/dL Creatinine 1.24 H (0.55-1.02) mg/dL Estim Creat Clear Calc 41 ml/min Estimated GFR 42 L (59 - ) Glucose 195 H (70-99) mg/dL Calculated Osmolality 299 H (285-295) mOsm/kg Calcium 9.5 (8.5-10.1) mg/dL NT-Pro-B Natriuret Pep 706 H (0-450) pg/mL Influenza A (RT-PCR) Positive A (Negative) Influenza B (RT-PCR) Negative (Negative) RSV (RT-PCR) Negative (Negative) SARS-CoV-2 RNA (RT-PCR) Negative (Negative) Discharge Plan Discharge Clinical Impression: Bronchitis, JUAN FRANCISCO (acute kidney injury) Patient Disposition: Home, Self-Care Condition: Stable Instructions: Antibiotic Form, Acute Kidney Injury (DC), Acute Bronchitis (ED) Additional Instructions: your symptoms appear to be most consistent with a case of bronchitis. Your positive for influenza a and this is also consistent with the respiratory infection. Generally your labs and vital signs are reassuring but you do have evidence that you have gotten a little bit dehydrated over the past week and that this has been hard on your kidneys. Sending You home with an inhaler that he can use as needed for any coughing or shortness of breath every 4 hours for the next 5 days. I also gave you a 1 L of fluid to help your kidneys. Over the next several days make sure that your drinking as much liquids as possible water is the best but Gatorade mixed with half water is also okay. you can take Tylenol 1000 mg up to 3 times a day for body aches or fever please follow-up with your primary care not only for your cough but to repeat testing of your kidneys to make sure that their function has returned to normal. Return to the emergency department or call 911 if? you develop high fever, shaking chills, or are unable to tolerate food or? fluids, have decreased urination, or are too sick to get out of bed. Patient Language: Korean Prescriptions: New albuterol sulfate [Ventolin HFA] 90 mcg/actuation HFA aerosol inhaler 1 inh inhalation QID PRN (Reason: shortness of breath or wheezing) Qty: 6.7 0RF No Action spironolacton-hydrochlorothiaz 25-25 mg tablet Januvia 25 mg tablet 25 mg PO DAILY aspirin [Adult Aspirin Regimen] 81 mg tablet,delayed release (DR/EC) 81 mg PO DAILY carvedilol 12.5 mg tablet 12.5 mg PO BID pravastatin 10 mg tablet 10 mg PO HS Humulin N NPH U-100 Insulin 100 unit/mL suspension 40 unit SUBCUT HS multivitamin Tablet 1 tablet PO DAILY ascorbic acid (vitamin C) 500 mg Tablet 500 mg PO DAILY vitamin B complex [B Complex-Vitamin B12] Tablet 1 tablet PO DAILY magnesium 250 mg Tablet 250 mg PO BID cholecalciferol (vitamin D3) [Vitamin D3] 125 mcg (5,000 unit) Tablet 125 mcg PO BID vitamin E 184 mcg PO DAILY amlodipine 10 mg tablet See Rx Instructions .ROUTE .COMPLEX Qty: 30 5RF Dose Instruction: TAKE ONE TABLET BY MOUTH AT BEDTIME Rx Instructions: TAKE ONE TABLET BY MOUTH AT BEDTIME isosorbide mononitrate 30 mg tablet extended release 24 hr See Rx Instructions .ROUTE .COMPLEX Qty: 90 2RF Dose Instruction: TAKE ONE TABLET BY MOUTH DAILY Rx Instructions: TAKE ONE TABLET BY MOUTH DAILY Follow-up/Referrals: Louie Marie MD [Primary Care Provider] - Time of Disposition: 14:14
[2024-07-23 13:23] LABS: Hematocrit 44.6 % (35.0-42.0); Hemoglobin 14.2 g/dL (11.7-13.8); Mean Corpuscular HGB Conc 31.8 g/dL (32-36); Mean Corpuscular Hemoglobin 27.6 pg (27.0-31.0); Mean Corpuscular Volume 86.8 fL (78.0-102.0); Platelet Count Result 229 K/mm3 (150-420); Red Blood Count 5.14 M/mm3 (4.20-5.40); Red Cell Distribution Width 15.9 % (11.6-14.4); White Blood Count 7.8 K/mm3 (4.8-10.8)
--- OUTSIDE RECORDS SUMMARY | 2024-07-23 13:30 | XMS_ITS | Clinical Summary ---
Author Organization [facility] Address [address] [place] [address] Care Team Providers Care Permit Review Assistant Name Role Phone Unavailable Primary Care Provider [...]
--- OUTSIDE RECORDS SUMMARY | 2024-07-23 13:30 | XMS_ITS | Clinical Summary ---
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 Gender Identity Not on file Sexual Orientation [...] history exists Medical Devices Implanted Type Area Web Marketing Specialist Device Identifier Shelf Expiration Date Model / Serial / Lot [employer] [facility] Eviva 13cm Identifier Biopsy Site [id number] - [id number] Implanted:Qty: 1 on 02/09/2023 by Brielle Garcia MD at [facility] [employer] [id number] 10/02/2023 [facility]13 / / [id number] Procedures Procedure Name Priority Date/Time Associated Diagnosis [...] compared to prior imaging studies performed at [facility]. [facility] on 09/21/2021, 12/23/2022 and 12/29/2022. There [...] compared to prior imaging studies performed at [facility]. [facility] on 09/21/2021, 12/23/2022 and 12/29/2022. There are scattered areas of fibroglandular density. There is no suspicious abnormality in either breast. Impression: There is no mammographic evidence of malignancy. Annual screening mammography is recommended. OVERALL FINAL ASSESSMENT: BI-RADS CATEGORY 1: Negative. Isidra Cooney WATER MAIN INSPECTOR IMG MAMMO PROCEDURES Fi nal Result from Last 3 Months or Most Recently Relevant to Health Maintenance [place] [address] [facility] MEDICARE [facility] MEDICARE [facility] Care Teams Welt Butter Hand Relationship Specialty Start Date End Date Louie Marie MD PCP - General 12/23/16
--- OUTSIDE RECORDS SUMMARY | 2024-07-23 13:30 | XMS_ITS | Referral Summary ---
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 [facility] on 09/21/2021, 12/23/2022 and 12/29/2022. There [...] compared to prior imaging studies performed at [facility]. [facility] on 09/21/2021, 12/23/2022 and 12/29/2022. There are scattered areas of fibroglandular density. There is no suspicious abnormality in either breast. Impression: There is no mammographic evidence of malignancy. Annual screening mammography is recommended. OVERALL FINAL ASSESSMENT: BI-RADS CATEGORY 1: Negative. Isidra Cooney NP IMG MAMMO PROCEDURES Fi nal Result from Last 3 Months or Most Recently Relevant to Health Maintenance Insurance MEDICARE [facility] MEDICARE [facility] MEDICARE [facility] Care Teams Inspector Cold Working Relationship Specialty Start Date End Date Louie Marie MD PCP - General 12/23/16
--- OUTSIDE RECORDS SUMMARY | 2024-07-23 13:30 | XMS_ITS | Clinical Summary ---
Author Organization [facility] Address [address] [place] [address] Phone Care Team Providers Care Spout Liner Helper Name Role Phone Louie Marie MD Primary Care Provider [phone] Rom Plata MD Unavailable Medications amLODIPine (NORVASC) [...] Type Department Care Team Description 06/27/2024 Telephone [facility] Endocrinology - [place] [address] [place] [address] oRm Plata MD Medication Management 04/22/2024 1:00 PM HYPERBARIC TECH Office Visit [facility] Endocrinology - [place] [address] [place] [address] Rom Plata MD Type 2 diabetes mellitus [...] Comments Blood Pressure 127/82 04/22/2024 1:01 PM HYPERBARIC TECH Pulse 52 04/22/2024 1:01 PM HYPERBARIC TECH Temperature 36.2 C (97.1 F) 04/22/2024 1:01 PM HYPERBARIC TECH Respiratory Rate 22 04/22/2024 1:01 PM HYPERBARIC TECH Oxygen Saturation 94% 04/22/2024 1:01 PM HYPERBARIC TECH Inhaled Oxygen Concentration - - Weight 106.6 kg (235 lb) 04/22/2024 1:01 PM HYPERBARIC TECH Height 165.1 cm (5' 5 ) 04/22/2024 1:01 PM HYPERBARIC TECH Body Mass Index 39.11 04/22/2024 1:01 PM HYPERBARIC TECH Plan of Treatment Upcoming Encounters Date Type Department Care Team (Late st Contact Info) Description 07/25/2024 1:30 PM HYPERBARIC TECH Office Visit [facility] - Endocrinology - [place] [address] [place] [id number] Rom Plata MD [address] [address] Health Maintenance Due Date Last Done Comments [...] age to complete this topic Insurance MEDICARE [facility] Care Teams Spout Liner Helper Relationship Specialty Start Date End Date Louie Marie MD [address] [place] [address] PCP - General Internal Medicine 02/18/24 Rom Plata MD [address] [address] Consulting Physician Endocrinology 04/20/24
[2024-07-23 13:32] LABS: Anion Gap 9 mmol/L (4-12); Blood Urea Nitrogen 25 mg/dL (7-18); Calcium 9.5 mg/dL (8.5-10.1); Carbon Dioxide 28 mmol/L (21-32); Chloride 103 mmol/L (98-108); Estimated CRCL calculation 41 ml/min; Estimated Glomerular Filt Rate 42; Glucose 195 mg/dL (70-99); Osmolality Calculated 299 mOsm/kg (285-295); Potassium 4.3 mmol/L (3.5-5.1); Sodium 140 mmol/L (136-145)
[2024-07-23 13:43] LABS: SARS-CoV-2 RNA PCR Negative (Negative)
[2024-07-23 13:45] LABS: Influenza A QL RT-PCR Positive (Negative); Influenza B QL RT-PCR Negative (Negative); RSV RNA, RT-PCR Negative (Negative)
[2024-07-23 13:46] LABS: NT Pro B Type Natriuretic Pept 706 pg/mL (0-450)
[2024-07-23] MEDS: ALBUTEROL SULFATE NEB 2.5 MG/3 ML INH INHALATION (14:00)
[2024-07-23] MEDS: SODIUM CHLORIDE 0.9% IV 500 ML 999 ML IV CONT (14:07)
== END 2024-07-23 14:35 | disposition home or self-care (01) ==
PROVIDERS: Emergency Provider Family Medicine; PCP Internal Medicine
DX: J40 Bronchitis, not specified as acute or chronic (principal); N17.9 Acute kidney failure, unspecified; I11.0 Hypertensive heart disease with heart failure; I50.9 Heart failure, unspecified; E11.9 Type 2 diabetes mellitus without complications; I25.10 Atherosclerotic heart disease of native coronary artery without angina pectoris; Z79.4 Long term (current) use of insulin; Z87.891 Personal history of nicotine dependence; Z20.822 Contact with and (suspected) exposure to COVID-19
CPT/HCPCS: 36415; 71046; 80048; 83880; 85027; 87637; 94640; 96360; 99283; J7040

== ENCOUNTER 2024-12-12 10:28 | Emergency (ER) | payer MEDICARE, SELFPAY ==
--- NOTE | ~2024-12-12 | XR_ITS ---
3 VIEWS LUMBAR SPINE Ordering provider: Idalia Cardona MD History: . LT hip pain radiates LBP X 1 week, getting worse . Comparison: None. FINDINGS: VERTEBRAL BODIES: No visible fracture or subluxation. Degenerative changes of the spine. Bilateral sacroiliacs. DISK SPACES: Narrowing of the disc L3-L4, L4-L5 and L5-S1. SOFT TISSUES: Vascular calcifications. IMPRESSION: No acute osseous abnormality lumbar spine. Multilevel degenerative disc disease. Reviewed, dictated and finalized at location A.
--- NOTE | ~2024-12-12 | XR_ITS ---
XR hip LT min 3V w AP pelvis Ordering provider: Idalia Cardona MD History: . LT hip pain radiates to LBP X 1 week, getting worse . Comparison: None. FINDINGS: BONES: No acute fracture or dislocation. HIP JOINT SPACES: Bilateral hip severe osteoarthritic changes. SACROILIAC JOINT SPACES/LUMBAR SPINE: The sacroiliac joint spaces shows bilateral sacroiliitis. Mild degenerative changes of the visualized lower lumbar spine. PUBIC SYMPHYSIS: Pubic symphysitis. SOFT TISSUES: Normal. IMPRESSION: No acute osseous abnormality pelvis and left hip. Bilateral severe hip osteoarthritic changes. Degenerative spine and bilateral sacroiliitis. Reviewed, dictated and finalized at location A.
[2024-12-12 10:29] VITALS: BP 128/61; PULSE 59; RESP 18; TEMP 36.6; O2SAT 95
--- OUTSIDE RECORDS SUMMARY | 2024-12-12 10:31 | XMS_ITS | Clinical Summary ---
Author Organization [facility] Address [address] [place] [address] Phone Care Team Providers Care Skewer Up Name Role Phone Louie Marie MD Primary Care Provider [phone] Rom Plata MD Unavailable Allergies Active Allergy Reactions Criticality Noted Date Comments Penicillins Hives 08/01/2024 Reaction: HIVES Propoxyphene Vomiting 08/01/2024 Reaction: VOMITTING, Medications amLODIPine (NORVASC) 10 MG Tablet 03/04/20 24 Active aspirin 81 MG Chewable Tablet Take 81 mg by mouth daily. Active carvedilol (COREG) 12.5 MG Tablet Take 12.5 mg by mouth. Active hydroCHLOROthi azide 25 MG Tablet Active isosorbide mononitrate (IMDUR) 30 MG TABLET SR 24 HR 01/04/20 24 Active losartan (COZAAR) 100 MG Tablet Take 100 mg by mouth daily. Active pravastatin (PRAVACHOL) 10 MG Tablet Active SODIUM FLUORIDE, DENTAL GEL, 1.1 % Cream Active spironolactone -hydrochloroth iazide (ALDACTAZIDE) 25-25 MG Tablet 03/18/20 24 Active Insulin Syringe-Needle U-100 (INSULIN SYRINGE .5CC/31GX5/16 ) 31G X 5/16 0.5 ML Misc Twice a day 200 Each 3 08/02/19 25 Active insulin NPH (HumuLIN N) 100 UNIT/ML Suspension 20 Units by Subcutaneous route 2 times daily. 40 mL 1 08/02/19 25 Active metFORMIN (GLUCOPHAGE-XR ) 500 MG TABLET SR 24 HR TAKE 2 TABLETS BY MOUTH 2 TIMES DAILY. THIS RX IS FOR METFORMIN SR. 360 Tablet 1 11/23/19 25 Active metFORMIN (GLUCOPHAGE-XR ) 500 MG TABLET SR 24 HR Take 2 Tablets by mouth 2 times daily. This RX is for Metformin SR. 360 Tablet 1 08/02/19 25 025 Discontinued Encounters Date Type Department Care Team Description 11/21/2024 Refill [facility] - Endocrinology [facility] [address] [place] [address] Rom Plata MD Medication Refill from Last 3 Months Immunizations Immunization Administration [...] Packs/Day Years Used Date Smoking Tobacco: Never Smokeless Tobacco: Never Tobacco Cessation:Counseling Given: Not Answered Alcohol Use Standard Drinks/Week Comments Never 0 [...] Sign Reading Time Taken Comments Blood Pressure 126/82 08/01/2024 2:30 PM COMPLIANCE CONSULTANT Pulse 51 08/01/2024 2:30 PM COMPLIANCE CONSULTANT Temperature 36.2 C (97.1 F) 08/01/2024 2:30 PM COMPLIANCE CONSULTANT Respiratory Rate 22 08/01/2024 2:30 PM COMPLIANCE CONSULTANT Oxygen Saturation 98% 08/01/2024 2:30 PM COMPLIANCE CONSULTANT Inhaled Oxygen Concentration - - Weight 100 kg (220 lb 6.4 oz) 08/01/2024 2:30 PM COMPLIANCE CONSULTANT Height 165.1 cm (5' 5) 04/22/2024 1:01 PM COMPLIANCE CONSULTANT Body Mass Index 36.68 04/22/2024 1:01 PM COMPLIANCE CONSULTANT Plan of Treatment Upcoming Encounters Date Type Department Care Team (Late st Contact Info) Description 01/31/2025 1:00 PM CDT Office Visit [facility] - Endocrinology - [place] [address] [place] [address] Rom Plata MD [address] [phone] Health Maintenance Due Date Last Done Comments DEXA Bone Density 1950 Hepatitis C Virus (HCV) Screening 1950 SARS-COV-2 Immunization ( season) 2024 04/13/2024, 03/09/2023, 05/16/2022, Additional history exists Influenza Immunization (#1) 01/30/202504/01, 03/09/2023, 03/05/2021, Additional history exists Td Immunization Every 10 Years (Adults With 1 Tdap) 10/20/2032 10/20/2022 Pneumococcal Immunization (50+ years) Completed 04/18/2019, 02/28/2016 Zoster Immunization Completed 08/18/2022, 05/16/2022, 04/13/2009 TdaP Immunization Discontinued 10/20/2022 Respiratory Syncytial Virus (RSV) Immunization (Adult) Completed 03/09/2023 Hepatitis B Immunization Aged Out No longer eligible based on patient's age to complete this topic Human Papillomavirus (HPV) Immunization Aged Out No longer eligible based on patient's age to complete this topic Meningococcal Immunization (ACWY) Aged Out No longer eligible based on patient's age to complete this topic Rotavirus Immunization Aged Out No lo nger eligible based on patient's age to complete this topic Insurance MEDICARE [facility] Care Teams Skewer Up Relationship Specialty Start Date End Date Louie Marie MD [address] [place] [address] PCP - General Internal Medicine 02/18/24 Rom Plata MD [address] [phone] Consulting Physician Endocrinology 04/20/24
--- OUTSIDE RECORDS SUMMARY | 2024-12-12 10:31 | XMS_ITS | Clinical Summary ---
Author Organization [facility] Address [address] [place] [address] Care Team Providers Care Science Faculty Member Name Role Phone Unavailable Primary Care Provider [...] 9:50 AM CDT Height 165.1 cm (5' 5) 10/02/2015 9:50 AM CDT Body Mass Index 39.94 10/02/2015 9:50 AM CDT Plan of Treatment Health Maintenance Due Date Last Done Comments Hepatitis C 1968 DTaP, Tdap and Td Vaccines ( 1 - Tdap) 08/08/1967 Pneumococcal Vaccine: 50+ Ye ars (1 of 1 - PCV) 1998 Zoster Vaccines (1 of 2) 1998 Dexa Scan (General) 2013 RSV Immunization or 60+ Years (1 - 1-dose 75+ series) 08/08/2023 COVID-19 Vaccine ( - 2023-2 5 season) 2024 Meningococcal B Vaccine Aged Out No l onger eligible based on patient's age to complete this topic Meningococcal Vaccine Aged Out No blayne vern eligible based on patient's age to complete this topic RSV Immunizations Under 20 Months Aged Out No longer eligible based on patient's age to complete this topic
--- OUTSIDE RECORDS SUMMARY | 2024-12-12 10:31 | XMS_ITS | Clinical Summary ---
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 Gender Identity Not on file Sexual Orientation [...] 11:57 AM CDT Height 165.1 cm (5' 5) 02/09/2023 11:57 AM CDT Body Mass Index 37.44 02/09/2023 11:57 AM CDT Plan of Treatment Health Maintenance Due Date Last Done Comments Depression Screening 1950 Fall Risk Assessment 1950 Hepatitis C Screening 1950 Osteoporosis Screening-Bone Density Scan 1950 DTaP/Tdap/Td Vaccine (1 - Tdap) 08/08/1959 Hepatitis B Screening 1966 Zoster Vaccine (2 of 3) 06/08/2009 04/13/2009 Well Visit 65+ 2013 Pneumococcal vaccine 65+ (2 of 2 - PPSV23) 02/27/2017 02/28/2016 Influenza Vaccine (Season Ended) 2025 03/10/2019, 02/27/2018, 02/26/2017, Additional history exists Breast Cancer Screening-Mammogram Discontinued 03/23/2024, 12/23/2022, 09/21/2021, Additional history exists Medical Devices Implanted Type Area Business Control Specialist Device Identifier Shelf Expiration Date Model / Serial / Lot [employer] Eviva 13cm Identifier Biopsy Site [id number] - [id number] Implanted:Qty: 1 on 02/09/2023 by Brielle Garcia MD at [facility] [employer] [id number] 10/02/2023 [facility] / / [id number] Procedures Procedure Name Priority Date/Time Associated Diagnosis [...] compared to prior imaging studies performed at [facility]. [facility] on 09/21/2021, 12/23/2022 and 12/29/2022. There are scattered areas of fibroglandular density. There is no suspicious abnormality in either breast. Impression: There is no mammographic evidence of malignancy. Annual screening mammography is recommended. OVERALL FINAL ASSESSMENT: BI-RADS CATEGORY 1: Negative. Procedure Note Alvarez, Ilsa [place], MD - 03/24/2024 Mammogram Technique: Bilateral Digital Breast Tomosynthesis, Bilateral C-view 2D Screening mammogram. Views obtained: bilateral craniocaudal and bilateral mediolateral oblique. Computer Aided Detection was performed. Mammogram Findings: The present examination has been compared to prior imaging studies performed at [facility]. [facility] on 09/21/2021, 12/23/2022 and 12/29/2022. There are scattered areas of fibroglandular density. There is no suspicious abnormality in either breast. Impression: There is no mammographic evidence of malignancy. Annual screening mammography is recommended. OVERALL FINAL ASSESSMENT: BI-RADS CATEGORY 1: Negative. Isidra Cooney NP IMG MAMMO PROCEDURES Fi nal Result from Last 3 Months or Most Recently Relevant to Health Maintenance Insurance MEDICARE [facility] MEDICARE [facility] MEDICARE [facility] Care Teams Competitive Intelligence Analyst Relationship Specialty Start Date End Date Louie Marie MD PCP - General 12/23/16
--- OUTSIDE RECORDS SUMMARY | 2024-12-12 10:31 | XMS_ITS | Referral Summary ---
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 [facility] on 09/21/2021, 12/23/2022 and 12/29/2022. There are [...] compared to prior imaging studies performed at [facility]. [facility] on 09/21/2021, 12/23/2022 and 12/29/2022. There are scattered areas of fibroglandular density. There is no suspicious abnormality in either breast. Impression: There is no mammographic evidence of malignancy. Annual screening mammography is recommended. OVERALL FINAL ASSESSMENT: BI-RADS CATEGORY 1: Negative. Isidra Cooney NP IMG MAMMO PROCEDURES Fi nal Result from Last 3 Months or Most Recently Relevant to Health Maintenance Insurance MEDICARE [facility] MEDICARE [facility] MEDICARE [facility] Address: [address] [address] [place] [address] [facility] Care Teams Talent Acquisition Operations Manager Relationship Specialty Start Date End Date Louie Marie MD PCP - General 12/23/16
--- NOTE | 2024-12-12 10:35 | ED_ITS ---
HPI - Back Pain/Injury General Chief Complaint: Back Pain/Injury Stated Complaint: pain on lower left side flank Time Seen by Provider: 12/12/24 10:35 Source: patient History of Present Illness HPI Narrative: 74 years old white female came from home by private car with her complaining of left hip pain radiating to left lower back started 1 week ago, got better after starting water exercise then got worse again. Sharp, stabbing, worse with movement and certain position, better remaining still. Patient denies any recent trauma. History of right sciatica, diabetes, hypertension, hyperlipidemia, congestive heart failure. Patient denies any fever, chills, nausea, vomiting, abdominal pain, chest pain, shortness of breath or urinary symptoms. MD elicited complaint: back pain Related Data Home Medications ?Medication ?Instructions ?Recorded ?Confirmed ?Last Taken ?Type carvedilol 12.5 mg tablet 12.5 mg PO BID 05/17/19 10/31/24 06/10/22 07:00 History insulin NPH isoph U-100 human 100 40 unit subcut HS 05/17/19 10/31/24 06/09/22 History unit/mL subcutaneous suspension (Humulin N NPH U-100 Insulin (isophane susp)) aspirin 81 mg tablet,delayed 81 mg PO DAILY 01/21/21 10/31/24 06/09/22 History release (Adult Aspirin Regimen) ascorbic acid (vitamin C) 500 mg 500 mg PO DAILY 06/09/22 10/31/24 06/10/22 07:00 History tablet cholecalciferol (vitamin D3) 125 125 mcg PO BID 06/09/22 10/31/24 06/10/22 07:00 History mcg (5,000 unit) tablet (Vitamin D3) magnesium 250 mg tablet 250 mg PO BID 06/09/22 10/31/24 06/10/22 07:00 History multivitamin 1 tablet PO DAILY 06/09/22 10/31/24 06/10/22 07:00 History vitamin B complex (B 1 tablet PO DAILY 06/09/22 10/31/24 06/10/22 07:00 History Complex-Vitamin B12 tablet) vitamin E 184 mcg PO DAILY 06/09/22 10/31/24 06/10/22 07:00 History sitagliptin phosphate 25 mg tablet 25 mg PO DAILY 07/23/24 10/31/24 Unknown History (Januvia) spironolactone 25 tablet 07/23/24 10/31/24 Unknown History mg-hydrochlorothiazide 25 mg tablet Allergies Allergy/AdvReac Type Severity Reaction Status Date / Time Penicillins Allergy Unknown Hives Verified 12/12/24 10:47 adhesive Allergy Rash Verified 12/12/24 10:47 Review of Systems Review of Systems: All systems reviewed & are unremarkable except as noted in HPI and below PMFSH Past Medical History Medical History Heart failure with preserved ejection fraction Insulin dependent type 2 diabetes mellitus Coronary artery disease Obstructive sleep apnea Arthritis Hypertension Hyperlipidemia Surgical History Surgical History History of coronary artery bypass graft (10/2010) Family History Family History Father Family history of diabetes mellitus in first degree relative Family history of heart disease in male family member before age 55 Mother Family history of diabetes mellitus in first degree relative Family history of heart disease in male family member before age 55 Social History Social History Social History: Surrogate medical decision maker: Sohail Becerra, spouse. Code status: Full code. Smoking packs per day: 0.25 Smoking cigarettes per day: 5.0 Years smoked: 2 Smoking pack-years: 0.50 Smoking status: Former smoker Tobacco type: cigarettes Second hand tobacco smoke exposure: No Additional smoking assessment comments: Quit in her 20's Alcohol intake: never Substance use: never Substance use type: does not use Do You Feel Safe in your Home?: Yes Lack of Transportation: No Lack of Food: Never True Current Housing: I Have Housing Concerned About Future Housing: No Difficulty Paying Gas/Electric Bills: No Difficulty Paying for Meds: No Currently Unemployed: No Education: High School Diploma/GED Difficulty w/ Childcare or Family Care: No Living arrangements: with family Spiritual care concerns: No Exam Narrative: General appearance: Well-developed, well-nourished Skin: Normal color Head: Normocephalic, nontraumatic Eyes: Clear conjunctiva ENT: Oropharynx normal, ears normal, nose normal Neck: Supple, nontender Chest and respiratory: Airway patent, no respiratory distress, no accessory muscle use Heart: Regular rate/rhythm Abdomen: Soft, nontender, no organomegaly, quiet bowel sounds Vascular: Normal peripheral pulses, normal capillary refill. Musculoskeletal: Diffuse tenderness left lower back, no bruises, no swelling, no rash. Left hip movement causing more lower back and hip pain. Mainly flexion. Neurologic: Alert and oriented ?3, STEWARD/STEWARDESS THIRD is normal as tested, no gross motor deficit , negative leg straight raising test Course Vital Signs Vital signs: Vital Signs Temperature 36.6 C 12/12/24 10:29 Pulse Rate 59 L 12/12/24 10:29 Respiratory Rate 18 12/12/24 10:29 Blood Pressure 128/61 12/12/24 10:29 Pulse Oximetry 95 12/12/24 10:29 Oxygen Delivery Room Air 12/12/24 10:29 Temperature 36.6 C 12/12/24 10:29 Pulse Rate 59 L 12/12/24 10:29 Respiratory Rate 18 12/12/24 10:29 Blood Pressure 128/61 12/12/24 10:29 Pulse Oximetry 95 12/12/24 10:29 Oxygen Delivery Room Air 12/12/24 10:29 MDM - Back Pain/Injury MDM Narrative Medical decision making narrative: differential diagnosis include lower back musculoskeletal pain, arthritis, left hip, left sacroiliac joint arthritis. X-ray of the lumbar spine and left hip and pelvis showed Discharge Plan Discharge Clinical Impression: Bilateral sacroiliitis, Hip osteoarthritis Patient Disposition: Home Condition: Stable Instructions: Osteoarthritis (ED), Sacroiliitis (ED) Additional Instructions: Return if symptoms are worsening , call your family physician for appointment For possible physical therapy, cortisone injection. take Tylenol as as needed for aches and pain, continue home medications. Patient Language: Yakut Prescriptions: New diclofenac sodium 75 mg tablet,delayed release (DR/EC) 75 mg PO BID PRN (Reason: pain) Qty: 14 0RF No Action spironolacton-hydrochlorothiaz 25-25 mg tablet Januvia 25 mg tablet 25 mg PO DAILY pravastatin 20 mg tablet 20 mg PO DAILY Qty: 30 5RF aspirin [Adult Aspirin Regimen] 81 mg tablet,delayed release (DR/EC) 81 mg PO DAILY carvedilol 12.5 mg tablet 12.5 mg PO BID Humulin N NPH U-100 Insulin 100 unit/mL suspension 40 unit SUBCUT HS multivitamin Tablet 1 tablet PO DAILY ascorbic acid (vitamin C) 500 mg Tablet 500 mg PO DAILY vitamin B complex [B Complex-Vitamin B12] Tablet 1 tablet PO DAILY magnesium 250 mg Tablet 250 mg PO BID cholecalciferol (vitamin D3) [Vitamin D3] 125 mcg (5,000 unit) Tablet 125 mcg PO BID vitamin E 184 mcg PO DAILY isosorbide mononitrate 30 mg tablet extended release 24 hr See Rx Instructions .ROUTE .COMPLEX Qty: 90 2RF Dose Instruction: TAKE ONE TABLET BY MOUTH DAILY Rx Instructions: TAKE ONE TABLET BY MOUTH DAILY amlodipine 10 mg tablet See Rx Instructions .ROUTE .COMPLEX Qty: 30 5RF Dose Instruction: TAKE ONE TABLET BY MOUTH AT BEDTIME Rx Instructions: TAKE ONE TABLET BY MOUTH AT BEDTIME Follow-up/Referrals: Louie Marie MD [Primary Care Provider] -
--- OUTSIDE RECORDS SUMMARY | 2024-12-12 11:08 | XMS_ITS | Clinical Summary ---
Author Organization [facility] Address [address] [place] [address] Care Team Providers Care Fine Jewelry Sales Associate Name Role Phone Unavailable Primary Care Provider [...]
--- OUTSIDE RECORDS SUMMARY | 2024-12-12 11:08 | XMS_ITS | Clinical Summary ---
Author Organization [facility] Address [address] [place] [address] Phone Care Team Providers Care Director Surface Transportation Name Role Phone Louie Marie MD Primary Care Provider Rom Plata MD Unavailable Allergies Active Allergy [...] Group - Endocrinology [facility] [address] [place] [address] Rom Plata MD Medication Refill from Last [...] Comments Blood Pressure 126/82 08/01/2024 2:30 PM CRUISE CONSULTANT Pulse 51 08/01/2024 2:30 PM CRUISE CONSULTANT Temperature 36.2 C (97.1 F) 08/01/2024 2:30 PM CRUISE CONSULTANT Respiratory Rate 22 08/01/2024 2:30 PM CRUISE CONSULTANT Oxygen Saturation 98% 08/01/2024 2:30 PM CRUISE CONSULTANT Inhaled Oxygen Concentration - - Weight 100 kg (220 lb 6.4 oz) 08/01/2024 2:30 PM CRUISE CONSULTANT Height 165.1 cm (5' 5) 04/22/2024 1:01 PM CRUISE CONSULTANT Body Mass Index 36.68 04/22/2024 1:01 PM CRUISE CONSULTANT Plan of Treatment Upcoming Encounters Date Type Department Care Team (Late st Contact Info) Description 01/31/2025 1:00 PM CDT Office Visit [facility] - Endocrinology - [place] [address] [place] [address] Rom Plata MD [address] [phone] Health Maintenance Due Date Last Done Comments [...] age to complete this topic Insurance MEDICARE [facility] Care Teams Director Surface Transportation Relationship Specialty Start Date End Date Louie Marie MD [address] [place] [address] PCP - General Internal Medicine 02/18/24 Rom Plata MD [address] [address] Consulting Physician Endocrinology 04/20/24
--- OUTSIDE RECORDS SUMMARY | 2024-12-12 11:08 | XMS_ITS | Referral Summary ---
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 [facility] on 09/21/2021, 12/23/2022 and 12/29/2022. There [...] compared to prior imaging studies performed at [facility]. [facility] on 09/21/2021, 12/23/2022 and 12/29/2022. There are scattered areas of fibroglandular density. There is no suspicious abnormality in either breast. Impression: There is no mammographic evidence of malignancy. Annual screening mammography is recommended. OVERALL FINAL ASSESSMENT: BI-RADS CATEGORY 1: Negative. Isidra Cooney NP IMG MAMMO PROCEDURES Fi nal Result from Last 3 Months or Most Recently Relevant to Health Maintenance Insurance * Guarantor: Edmundo Willis Account Type Relation to Patient Date of Phone Billing Address Personal/Family Self 1950 [address] [place] [address] MEDICARE [facility] MEDICARE [facility] MEDICARE [facility] Address: [address] [address] [place] [address] [facility] Care Teams Tool Crib Clerk Relationship Specialty Start Date End Date Louie Marie MD PCP - General 12/23/16
--- OUTSIDE RECORDS SUMMARY | 2024-12-12 11:08 | XMS_ITS | Clinical Summary ---
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 Gender Identity Not on file Sexual [...] - PPSV23) 02/27/2017 02/28/2016 Influenza Vaccine (#1) 2025 9, 02/27/2018, 02/26/2017, Additional history exists Breast Cancer Screening-Mammogram Discontinued 03/23/2024, 12/23/2022, 09/21/2021, Additional history exists Medical Devices Implanted Type Area Realtime Captioner Device Identifier Shelf Expiration Date Model / Serial / Lot [employer] Eviva 13cm Identifier Biopsy Site [id number] - [id number] Implanted:Qty: 1 on 02/09/2023 by Birelle Garcia MD at [facility] [employer] [id number] 10/02/2023 [facility] / / [id number] Procedures Procedure Name Priority Date/Time Associated Diagnosis [...] compared to prior imaging studies performed at [facility]. [facility] on 09/21/2021, 12/23/2022 and 12/29/2022. There [...] compared to prior imaging studies performed at [facility]. [facility] on 09/21/2021, 12/23/2022 and 12/29/2022. There are scattered areas of fibroglandular density. There is no suspicious abnormality in either breast. Impression: There is no mammographic evidence of malignancy. Annual screening mammography is recommended. OVERALL FINAL ASSESSMENT: BI-RADS CATEGORY 1: Negative. Isidra Cooney NP IMG MAMMO PROCEDURES Fi nal Result from Last 3 Months or Most Recently Relevant to Health Maintenance Insurance MEDICARE [facility] MEDICARE [facility] MEDICARE [facility] Care Teams Front End Java Developer Relationship Specialty Start Date End Date Louie Marie MD PCP - General 12/23/16
[2024-12-12] MEDS: IBUPROFEN 600 MG TABLET PO (11:09)
[2024-12-12] MEDS: HYDROcodone/acetaminophen (*CRX) 5-325 MG TABLET 1 TAB PO (11:10)
[2024-12-12 11:52] VITALS: BP 128/62; PULSE 60; RESP 20; TEMP 36.6; O2SAT 95
== END 2024-12-12 11:54 | disposition home or self-care (01) ==
PROVIDERS: Emergency Provider Emergency Medicine; PCP Internal Medicine
DX: M46.1 Sacroiliitis, not elsewhere classified (principal); M16.12 Unilateral primary osteoarthritis, left hip; E78.5 Hyperlipidemia, unspecified; I11.0 Hypertensive heart disease with heart failure; I50.9 Heart failure, unspecified; I25.10 Atherosclerotic heart disease of native coronary artery without angina pectoris; Z87.891 Personal history of nicotine dependence
CPT/HCPCS: 72100; 73502; 99284; A9270

== ENCOUNTER 2025-01-23 11:06 | Outpatient (RCR) | payer MEDICARE, SELFPAY ==
--- NOTE | 2025-01-23 11:37 | OPREHPOC ---
Outpatient Therapy Plan of Care This is a Multidisciplinary Plan of Care that may contain components documented by all disciplines (PT, OT, and ST.) PT Problem 1 PT Problem #1 Knowledge Deficit PT Goal 1 Goal / Goal Update display safe use of WW Target Visit 1 Progress Met
--- NOTE | 2025-01-23 11:38 | PTOPEVDC ---
Assessment and note entered by JT File, PT Thank you for referring Melissa Molina to [facility].? An evaluation has been completed. No further treatment is needed. Evaluation Information Assessment Status Evaluation ICD-10 Condition Codes (PT) Pain in left hip M25.552 Onset 01/18/2025 Subjective Information patient reports she has been having pain in the L hip since mid October. she reports she has had no fall. she reports her xrays did not show any fractures, but did show advanced OA. however, her ortho believes an MRI may reveal a fracture. she reports she is just coming to therapy to learn how to use a walker. Reported Pain Level Pain Score 5: Self Report Assessment PT Clinical Summary mrs. molina was evaluated and educated today in her performance and safe use of a WW. her walker height was adjusted, and we reviewed the proper ambulation and stair mechanics for safety today. patient performed these activities safely with PT today. she will be DC'd from skilled PT services today as she awaits results of her L hip MRI later this week. Plan of Care Treatment Frequency and DC Duration
== END 2025-01-23 20:00 | disposition home or self-care (01) ==
LOC: CHSPT 11:06
PROVIDERS: Visit Provider Orthopaedic Surgery
DX: M16.12 Unilateral primary osteoarthritis, left hip (principal); M25.552 Pain in left hip
CPT/HCPCS: 97161

== ENCOUNTER 2025-01-26 14:18 | Outpatient (CLI) | payer MEDICARE, SELFPAY ==
--- NOTE | ~2025-01-26 | MR_ITS ---
EXAMINATION: MR hip LT wo con DATE: 01/26/2025 15:08 INDICATION: Left hip pain TECHNIQUE: Magnetic resonance imaging (MRI) of the left hip was performed without intravenous contrast. Sequences included full-field axial PD-weighted FS FSE and T1-weighted FSE, coronal of the pelvis with PD-weighted FS FSE, T2- weighted FSE and T1-weighted FSE, small field of view of the left hip with axial PD-weighted FS FSE, sagittal PD-weighted FS FSE, coronal PD-weighted FS FSE and coronal T2 weighted FSE. Additional radial T1-weighted FGR oriented orthogonal to the acetabular rim were obtained for evaluation of the labrum. COMPARISON: Left hip radiographs dated 12/12/2024 FINDINGS: Bones/labrum/cartilage: Alignment is normal. No fracture, avascular necrosis or pathologic marrow replacing process. Anterior fusion at L4-S1. Mild bilateral hip and sacroiliac osteoarthritis. Likely chronic bilateral labral degeneration with the acetabular manolo largely replaced by marginal osteophytes along the rims of both the left and right acetabula. Fluid: Symmetric physiologic amount of fluid within both hip joints. No bursitis, free fluid in the pelvis or other abnormal fluid collections. Soft tissues: There is focal fatty atrophy involving a portion of the anterior left gluteus minimus muscle. Otherwise normal and symmetric muscle bulk and signal in the pelvis and visualized proximal thighs. The iliopsoas, gluteal and proximal hamstring tendons are normal. The uterus is not identified and has likely been surgically resected. Limited evaluation of visceral organs of the pelvis is otherwise unremarkable. No pathologically enlarged pelvic/inguinal lymphadenopathy. Partially visualized moderate sized umbilical hernia. Visualized portion which contains fat. There is stranding and increased fluid s ignal extending caudally in a band across the subcutaneous fat inferior to the left ischial tuberosity suspicious for decubitus deep tissue injury. 1. Mild osteoarthritis at the bilateral hip and sacral iliac joints with no joint effusion or acute osseous abnormality. 2. Stranding and edema in the subcutaneous fat extending inferiorly from the left ischial tuberosity suspicious for a decubitus deep tissue injury. 3. Severe lower lumbar spondylosis with anterior fusion at L4-S1. Reviewed, dictated and finalized at location A.
== END 2025-01-26 14:19 | disposition home or self-care (01) ==
LOC: MICIMG 14:21
PROVIDERS: PCP Internal Medicine; Visit Provider Orthopaedic Surgery
DX: R29.898 Other symptoms and signs involving the musculoskeletal system (principal); M16.0 Bilateral primary osteoarthritis of hip; M47.818 Spondylosis without myelopathy or radiculopathy, sacral and sacrococcygeal region; R60.9 Edema, unspecified; M47.816 Spondylosis without myelopathy or radiculopathy, lumbar region; Z48.1 Encounter for planned postprocedural wound closure; Z98.1 Arthrodesis status
CPT/HCPCS: 73721

== ENCOUNTER 2025-02-06 12:58 | Outpatient (RCR) | payer MEDICARE, SELFPAY ==
--- NOTE | 2025-02-06 13:48 | OPREHPOC ---
Outpatient Therapy Plan of Care This is a Multidisciplinary Plan of Care that may contain components documented by all disciplines (PT, OT, and ST.) PT Problem 1 PT Problem #1 Knowledge Deficit PT Goal 1 Goal / Goal Update independent and compliant with HEP Target Visit 6 PT Problem 2 PT Problem #2 Pain PT Goal 1 Goal / Goal Update decrease pain at worst to 5/10 or less in the L hip Target Visit 12 PT Problem 3 PT Problem #3 Impaired Strength PT Goal 1 Goal / Goal Update improve bilateral hip strength to 4/5 or better overall Target Visit 12 PT Problem 4 PT Problem #4 Impaired Functional Mobility PT Goal 1 Goal / Goal Update patient to ambulate equal step/stride length, no hip drop, and equal stance time without an AD. LEFS to display 50% or less functional deficits patient to tolerate 1 hour of sitting and standing to improve functional independence. Target Visit 12
--- NOTE | 2025-02-06 13:48 | PTOPEVAL1 ---
Assessment and note entered by JT File, PT Evaluation Information Assessment Status Evaluation ICD-10 Condition Codes (PT) Pain in left hip M25.552 Onset 01/31/25 Subjective Information patient reports she has been having pain in the L hip since mid november. she reports she is only pain free when laying flat on her back. she reports she has pain increased in the L hip with sitting. she reports it hurts along the L groin and into the hip. she reports she struggles to bend to do laundry, stand at the counter to do dishes or cook , or sit to use the restroom. Reported Pain Level Pain Score 6: Self Report Assessment PT Clinical Summary mrs. hewitt is a pleasant 74 yo woman who presents to skilled PT services for evaluation and treatment of L hip pain. she presents with decreased hip rom, bilateral hip weakness, pain, and deficits in daily functional activities. she displays signs and symptoms consistent with L hip OA and secondary L greater trochanteric bursitis. continued skilled PT is indicated to improve her objective/functional deficits and improve her functional activity performance/quality of life. Plan of Care Interventions Electrical Stimulation,Gait Training,Hot Pack/Cold Pack,Manual Therapy,Neuro Re-education,Patient/ Caregiver Education,Therapeutic Activities, Therapeutic Exercise PT Services Indicated Yes Treatment Frequency and 3x weekly for 12 visits Duration These treatments will address the objective and functional deficits as defined above. The patient will be advanced safely and appropriately in order for the patient to progress towards his/her prior level of function. Additional exercises will be introduced and as well as a comprehensive home exercise program upon discharge, if needed, ?to ensure carryover of functional gains achieved in the clinic. This treatment plan has been reviewed and agreement upon by the patient.
--- NOTE | 2025-03-02 15:21 | OPREHPOC ---
Outpatient Therapy Plan of Care This is a Multidisciplinary Plan of Care that may contain components documented by all disciplines (PT, OT, and ST.) PT Problem 1 PT Problem #1 Knowledge Deficit PT Goal 1 Goal / Goal Update independent and compliant with HEP Target Visit 6 Progress Met PT Goal 2 Goal / Goal Update continue to progress PT Problem 2 PT Problem #2 Pain PT Goal 1 Goal / Goal Update decrease pain at worst to 5/10 or less in the L hip Target Visit 12 Progress Not Met PT Problem 3 PT Problem #3 Impaired Strength PT Goal 1 Goal / Goal Update improve bilateral hip strength to 4/5 or better overall Target Visit 12 Progress Not Met PT Problem 4 PT Problem #4 Impaired Functional Mobility PT Goal 1 Goal / Goal Update patient to ambulate equal step/stride length, no hip drop, and equal stance time without an AD. LEFS to display 50% or less functional deficits patient to tolerate 1 hour of sitting and standing to improve functional independence. Target Visit 12 Progress Not Met
--- NOTE | 2025-03-02 15:21 | PTOPPROG ---
Assessment and note entered by Elicia Martinez, PT Evaluation Information Assessment Status Progress ICD-10 Condition Codes (PT) Pain in left hip M25.552 Onset 01/31/25 Subjective Information Melissa reports her left hip is doing better overall . She has not had to take pain medication recently . She did have some increased pain yesterday after activity but she was able to calm it down with ice. She is noting improved ability to stand for longer periods noting she can now cook and stand 20-30 minutes without rest. She is also not using her cane in the house and for walking short distances. She still uses the cane for longer distances and when she feels lightheaded. She has been having episodes of lightheadedness over the last couple weeks and reports she will see her doctor on 03/06/25 for her blood pressure. Assessment PT Clinical Summary Melissa Becerra has completed 9 out of 10 skilled PT visits for L hip pain. She reports less pain overall and she is able to stand now for 20-30 minutes. She does still use a cane with longer distance walking but not around her house. She has been having instances of lightheadedness and will see her PCP for this on 03/06/25. BP has been monitored throughout PT sessions and she has had low diastolic pressure and that has resulted in limitations in treatment. She demonstrates decreased balance, decreased hip strength, and decreased endurance. She will continue to benefit from skilled PT to further address these limitations. Plan of Care Interventions Electrical Stimulation,Gait Training,Hot Pack/Cold Pack,Manual Therapy,Neuro Re-education,Patient/ Caregiver Education,Therapeutic Activities, Therapeutic Exercise PT Services Indicated Yes Treatment Frequency and Continue original POC for 3 additional visits Duration These treatments will address the objective and functional deficits as defined above. The patient will be advanced safely and appropriately in order for the patient to progress towards his/her prior level of function. Additional exercises will be introduced and as well as a comprehensive home exercise program upon discharge, if needed, ?to ensure carryover of functional gains achieved in the clinic. This treatment plan has been reviewed and agreement upon by the patient.
--- NOTE | 2025-03-17 11:25 | OPREHPOC ---
Outpatient Therapy Plan of Care This is a Multidisciplinary Plan of Care that may contain components documented by all disciplines (PT, OT, and ST.) PT Problem 1 PT Problem #1 Knowledge Deficit PT Goal 1 Goal / Goal Update independent and compliant with HEP Target Visit 6 Progress Met PT Goal 2 Goal / Goal Update . PT Problem 2 PT Problem #2 Pain PT Goal 1 Goal / Goal Update decrease pain at worst to 5/10 or less in the L hip Target Visit 12 Progress Met PT Problem 3 PT Problem #3 Impaired Strength PT Goal 1 Goal / Goal Update improve bilateral hip strength to 4/5 or better overall Target Visit 12 Progress Not Met PT Problem 4 PT Problem #4 Impaired Functional Mobility PT Goal 1 Goal / Goal Update patient to ambulate equal step/stride length, no hip drop, and equal stance time without an AD. not met LEFS to display 50% or less functional deficits. not met patient to tolerate 1 hour of sitting and standing to improve functional independence. met Target Visit 12 Progress Not Met
--- NOTE | 2025-03-17 11:25 | PTOPDC ---
Assessment and note entered by JT File, PT Evaluation Information Assessment Status Discharge ICD-10 Condition Codes (PT) Pain in left hip M25.552 Onset 01/31/25 Subjective Information patient reports she feels much better since starting PT. she reports she still has some instances where she still has to ice it due to pain. she reports she is compliant with her HEP at home. she reports she enjoys swimming. she reports she will continue with her HEP and her swimming at home on her own. she reports she feels she is ready to stop skilled PT today. Reported Pain Level Pain Score 3: Self Report Assessment PT Clinical Summary mrs. hewitt reports she is doing much better. she displays improved strength, improve ambulation mechanics and endurance, and improved functional activity performance per the LEFS. patient would like to DC skilled PT today, and continue with HEP independent at home. Plan of Care PT Services Indicated Yes
== END 2025-03-17 20:00 | disposition home or self-care (01) ==
LOC: CHSPT 12:58
PROVIDERS: Visit Provider Orthopaedic Surgery
DX: M25.552 Pain in left hip (principal)
CPT/HCPCS: 97110; 97112; 97161; 97530

== ENCOUNTER 2025-05-09 12:52 | Outpatient (CLI) | payer MEDICARE, SELFPAY ==
--- NOTE | 2025-05-09 12:57 | ECHO_ITS ---
Patient Info Name: Melissa Molina Age: 74 years : 1950 Gender: Female Ht: 65 in Wt: 204 lbs BSA: 2.10 m2 HR: 55 bpm BP: 94 / 64 mmHg Technical Quality: Fair Exam Date: 05/09/2025 12:58 PM Patient Status: O Admit Date: 05/09/2025 Exam Type: CA echo dop color flow w con Complete two-dimensional, color flow and Doppler transthoracic echocardiogram is performed with contrast to opacify the left ventricle and to improve the deliniation of the left ventricle endocardial borders. Paste Thinner: Antonio Beckham III Attending Provider: Patrick Cadena DO Contrast/Agitated Saline Contrast/Ag. Saline: Definity Amount: 2.00 ml Administered By: Antonio Beckham III Existing IV Access: No IV Access Condition: patent with no signs of infiltration New IV Access: Right Site Condition: IV removed Summary 1. Definity contrast administered improved wall motion interpretation. 2. Left ventricular chamber dimension is normal. 3. Left ventricular systolic function is normal, estimated at 55-60. 4. The left ventricular diastolic function is abnormal. 5. E/e' 22 is elevated. 6. Right ventricular chamber dimension is mildly enlarged. 7. Right ventricular systolic function is at least mildly reduced. 8. Left atrial chamber dimension is moderately enlarged. 9. Right atrial chamber dimension is mildly enlarged. 10. There is moderate aortic valve sclerosis. 11. The mitral valve has a moderately calcified annulus. 12. There is mild mitral valve regurgitation. 13. There is mild tricuspid valve regurgitation. 14. No pulmonary hypertension, estimated pulmonary arterial systolic pressure is 36 mmHg. Left Ventricle Definity contrast administered improved wall motion interpretation. Left ventricular chamber dimension is normal. Left ventricular systolic function is normal, estimated at 55-60. The left ventricular diastolic function is abnormal. E/e' 22 is elevated. Right Ventricle Right ventricular chamber dimension is mildly enlarged. Right ventricular systolic function is at least mildly reduced. Left Atria Left atrial chamber dimension is moderately enlarged. Right Atria Right atrial chamber dimension is mildly enlarged. Aortic Valve The aortic valve is trileaflet. There is moderate aortic valve sclerosis. There is no aortic valve stenosis. There is no aortic valve regurgitation. Pulmonic Valve There is no pulmonic regurgitation. Mitral Valve The mitral valve has a moderately calcified annulus. There is no mitral valve stenosis. There is mild mitral valve regurgitation. Tricuspid Valve There is mild tricuspid valve regurgitation. No pulmonary hypertension, estimated pulmonary arterial systolic pressure is 36 mmHg. Pericardium/Pleural There is no pericardial effusion. Inferior Vena Cava Normal inferior vena cava with >50% collapse upon inspiration consistent with normal right atrial pressure, 5 mmHg. Aorta The aortic root size at the sinus of Valsalva is normal. Left Ventricular Outflow Tract Name Value Normal LVOT 2D LVOT Diameter 2.2 cm LVOT Doppler LVOT Peak Velocity 102 cm/s LVOT Peak Gradient 4 mmHg LVOT Mean Gradient 2 mmHg LVOT VTI 27 cm LVOT VTI/AV VTI Ratio 0.7 LVOT Stroke Volume 99 ml LVOT CO 5.0 l/min LVOT CI 2.4 l/min/m2 Pulmonic Valve Name Value Normal PV Doppler PV Peak Velocity 108 cm/s PV Peak Gradient 5 mmHg PV Mean Gradient 3 mmHg Mitral Valve Name Value Normal MV Doppler MV Peak Gradient 14 mmHg MV Mean Gradient 4 mmHg MV Area (Cont Eq VTI) 2.1 cm2 MV Diastolic Function MV E Peak Velocity 139 cm/s MV A Peak Velocity 77 cm/s MV E/A 1.8 MV Decel Time (PW) 198 ms MV Annular TDI MV E/e' (Septal) 43.6 MV E/e' (Lateral) 15.5 MV E/e' (Average) 29.5 Tricuspid Valve Name Value Normal TV Regurgitation Doppler TR Peak Velocity 278 cm/s TR Peak Gradient 29 mmHg Estimated PAP/RSVP RA Pressure 5 mmHg <=5 PA Systolic Pressure 36 mmHg <36 RV Systolic Pressure 36 mmHg <36 TV Annular TDI TV Lateral Kari s' Velocity 8.2 cm/s >=9.5 Aortic Valve Name Value Normal AV Doppler AV Peak Velocity 148 cm/s AV Peak Gradient 8 mmHg AV Mean Gradient 4 mmHg AV VTI 38 cm AV Area (Cont Eq VTI) 2.6 cm2 >=3.0 AV Area (Cont Eq Aman) 2.5 cm2 AV DI (Aman) 0.69 AV Regurgitation 2D LVOT Area 3.6 cm2 Ventricles Name Value Normal LV Dimensions 2D/MM IVS Diastolic Thickness (2D) 1.5 cm 0.6-1.0 LVID Diastole (2D) 4.8 cm 3.8-5.2 LVIW Diastolic Thickness (2D) 1.4 cm 0.6-0.9 LVID Systole (2D) 3.4 cm 2.2-3.5 LVOT Diameter 2.2 cm LV Mass (2D Cubed) 295.67 g 67.00-162.00 LV Mass Index (2D Cubed) 141 g/m2 43-95 Relative Wall Thickness (2D) 0.59 <=0.42 LV Fractional Shortening/Ejection Fraction 2D/MM LV Fractional Shortening (2D) 29 % 27-45 LV EF (2D Teichholz) 56 % LV Diastolic Volume (4C MOD) 94 ml LV EF (4C MOD) 62 % LV Diastolic Volume (2C MOD) 74 ml LV EF (2C MOD) 58 % LV Diastolic Volume (BP MOD) 79 ml 46-106 LV Diastolic Volume Index (BP MOD) 38 ml/m2 29-61 LV Systolic Volume (BP MOD) 39 ml 14-42 LV Systolic Volume Index (BP MOD) 19 ml/m2 8-24 LV EF (BP MOD) 50 % 54-74 LV Diastolic Length (4C) 6.9 cm LV Systolic Length (4C) 5.5 cm LV Stroke Volume (4C MOD) 59 ml Atria Name Value Normal LA Dimensions LA Volume (4C A-L) 90 ml LA Volume (BP A-L) 81 ml RA Dimensions RA Systolic Major [place] Length (4C) 5.5 cm 2.2-2.8 RA Area (4C) 20.5 cm2 <=18.0 Report Signatures
--- NOTE | 2025-05-09 14:43 | IVDEFINITY ---
Prior to administration of IV Definity the patient was educated on the risks and benefits of the imaging enhancing agent including potential adverse side effects. The patient verbalized understanding. Allergies were verified. No exclusion criteria were identified and at least one of the following inclusion criteria were met: 1) physician request, 2) patient technically difficult to image (per the [place] [employer] guidelines of two or more segments not discernable within the apical view), or 3) questionable left ventricular function. ?
[2025-05-09] MEDS: PERFLUTREN LIPID MICROSPHERES 1.5 ML VIAL DILUTED TO 10 ML TOTAL VOLUME IV PUSH (14:53)
== END 2025-05-09 12:53 | disposition home or self-care (01) ==
LOC: CHSIMG 12:54
PROVIDERS: PCP Internal Medicine; Visit Provider Internal Medicine Cardiovascular Disease
DX: R06.09 Other forms of dyspnea (principal); I08.3 Combined rheumatic disorders of mitral, aortic and tricuspid valves
CPT/HCPCS: C8929